=== PATIENT | male | born 1955 | race Caucasian/White ===

== ENCOUNTER 2017-07-29 17:14 | Inpatient (IN) | payer BC ==
[2017-07-29] MEDS ORDERED: Piperacillin/Tazobactam 4.5 GM VIAL ONE (21:39)
[2017-07-29] MEDS ORDERED: Sodium Chloride 0.9% 100 ML ONE (21:39)
[2017-07-29 21:41] LABS: #Eosinphils 0.1 thou/uL (0.0-0.7); #Lymphocytes 2.3 thou/uL (1.20-3.40); #Monocytes 1.6 thou/uL (0.11-0.59); #Neutrophils 12.7 thou/uL (1.40-6.50); %Basophils 0.3 % (0.0-1.0); %Eosinophils 0.8 % (0.0-10.0); %Lymphocytes 13.7 % (21.0-51.0); %Monocytes 9.6 % (0.0-10.0); Hematocrit 48.8 % (42.0-52.0); Mean Platelet Volume 7.1 fL (7.4-10.4); Red Blood Cell (RBC) Count 5.36 mill/uL (4.70-6.10); White Blood Cell (WBC) Count 16.8 thou/uL (4.8-10.8)
[2017-07-29 22:00] LABS: Lactic Acid - Sepsis 1.8 mmol/L (0.5-2.2)
--- NOTE | 2017-07-29 22:10 | RAD ---
RIGHT FOREARM TWO VIEWS: 07/29/17 HISTORY: Cellulitis, swelling of the right forearm and elbow. FINDINGS/IMPRESSION: No fracture, dislocation or bony destruction is seen. No periosteal reaction is identified. No radio paque foreign body is noted. POS: [facility]
[2017-07-29 22:13] LABS: ALT (SGPT) 16 U/L (8-55); AST (SGOT) 14 U/L (5-34); Alkaline Phosphatase 114 U/L (40-150); Anion Gap 14 mmol/L (10-20); BUN (Urea Nitrogen) 10 mg/dL (8.4-25.7); Calc. Creatinine Clearance 0 mL/min (70-130); Calcium 9.1 mg/dL (7.8-10.44); Carbon Dioxide 26 mmol/L (23-31); Chloride 102 mmol/L (98-107); Estimated GFR-MDRD Greater than 90; Globulin 4.8 g/dL (2.4-3.5); Protein, Total 8.5 g/dL (5.8-8.1)
[2017-07-29] MEDS ORDERED: Clindamycin/D5W 900 mg/50 ml Premix Bag ONE (22:13)
--- NOTE | 2017-07-29 22:13 | RAD ---
RIGHT ELBOW TWO VIEWS: 07/29/17 HISTORY: Cut to the right elbow last week, now with swelling, redness, warmth and pain. FINDINGS/IMPRESSION: A small olecranon space present. No fracture, dislocation, bony destruction or periosteal reaction i s identified. No radiopaque foreign body is seen. POS: [facility]
--- NOTE | 2017-07-29 23:59 | PDOC.EVN ---
Event Note - Event Note Event Note: [id number] h&p dictated 1. Rt upper extremity cellulitis 2. Pain 3. Sepsis 4. H/O Ventral hernia plan: see orders
[2017-07-30] MEDS ORDERED: HYDROcodone/Acetaminophen 5/325 mg Tablet PO PRN (00:41)
[2017-07-30] MEDS ORDERED: Ondansetron HCl/PF 4 MG/2 ML Vial IVP PRN ×2 (00:41→11:16)
[2017-07-30] MEDS ORDERED: Morphine 2 MG/ML SYRINGE SLOW IVP PRN (00:44)
[2017-07-30 01:36] VITALS: BMI 37.2
[2017-07-30] MEDS: Sodium Chloride 0.9% 1,000 ML IV SCH ×3 (02:14→20:44)
[2017-07-30] MEDS ORDERED: Clindamycin/D5W 600 MG in Premix Bag 1 BAG IVPB SCH (06:00)
--- NOTE | 2017-07-30 07:19 | ULT ---
PRELIMINARY REPORT/[facility]/EMERGENCY AFTER HOURS PROCEDURE: EXAM: US Duplex Right Upper Extremity Veins CLINICAL HISTORY: 62 years old, male; Pain and signs and symptoms; Edema, localized and other: Redness; Upper extremit y, right; Other: Elbow TECHNIQUE: Real-time ultrasound scan of the veins of the right upper extremity with color Doppler flow, spectra l waveform analysis and compression. COMPARISON: No relevant prior studies available. FINDINGS: Evaluated veins include the internal jugular, subclavian, axillary, brachial, basilic, cephalic, rad ial, and ulnar veins. No visible clot in the included veins. The included veins appear normally compressible. Duplex Doppler evaluation demonstrates flow in the evaluated veins. IMPRESSION: No evidence of acute right upper extremity DVT. Thank you for allowing us to participate in the care of your patient. Dictated and Authenticated by: Mack Escalante MD 07/30/2017 12:25 AM Central Time ([place] \T\ [place]) FINAL REPORT EMERGENT AFTER HOURS RIGHT UPPER EXTREMITY VENOUS DOPPLER WITH SPECTRAL ANALYSIS AND COLOR FLOW EVAL UATION: 07/30/2017 HISTORY: Right upper extremity pain. IMPRESSION: Findings are in agreement with the preliminary report by Marquise. There is no evidence of a DVT invol ving the visualized deep venous structures of the right upper extremity. POS: [facility]
[2017-07-30] MEDS ORDERED: Milk Of Magnesia 30 ML UDCUP PO PRN (07:46)
[2017-07-30] MEDS ORDERED: Ondansetron ODT 4 MG TAB PO PRN (07:46)
[2017-07-30] MEDS ORDERED: Artificial Tears 18 DROP/0.9 ML EA EYE PRN (07:46)
[2017-07-30] MEDS ORDERED: Loperamide HCl 2 MG CAP PO PRN (07:46)
[2017-07-30] MEDS ORDERED: Mag-Al 1200 mg/1200 mg/30 ML UDCUP PO PRN (07:46)
[2017-07-30] MEDS ORDERED: Temazepam 15 MG CAP PO PRN (07:46)
[2017-07-30] MEDS ORDERED: Chloraseptic Spray 180 ml Bottle PO PRN (07:46)
[2017-07-30] MEDS ORDERED: Sodium Chloride 0.65% Nasal 44 ML BOT EA NARE PRN (07:46)
[2017-07-30] MEDS ORDERED: Loratadine 10 MG TAB PO PRN (07:46)
[2017-07-30] MEDS ORDERED: Senokot 8.6 MG TAB PO PRN (07:46)
[2017-07-30] MEDS ORDERED: hydrALAZINE 20 MG/ML VIAL SLOW IVP PRN (07:46)
[2017-07-30] MEDS ORDERED: Diabetic Tussin 200 MG/10 ML UDCUP PO PRN (07:46)
[2017-07-30] MEDS ORDERED: Eucerin (Mineral Oil/Petrolatum,White) 30 gm Jar TOP PRN (07:46)
--- NOTE | 2017-07-30 07:52 | CON ---
DATE OF CONSULTATION: 07/30/2017 REQUESTING PHYSICIAN: Dr. Yaya Chen CONSULTING PHYSICIAN: Dr. Emmanuel Calvert CHIEF COMPLAINT: Right arm septic olecranon bursitis. HISTORY OF PRESENT ILLNESS: Jerome is a 62-year-old white male who was admitted to the emergency [facility] yesterday evening after he presented as a walk-in for amplified pain, swelling, and redness of the right elbow after he bumped it approximately 5 days ago. He treated with essentially benign neglec t for the prior 4-5 days until pain amplification prompted him to come to the ER. He was admitted b y the Medicine Team and our service was consulted for evaluation of presumed septic olecranon bursit is with resultant leukocytosis. PAST MEDICAL HISTORY: Negative with the exception of chronic morbid obesity. PAST SURGICAL HISTORY: Noncontributory. PHYSICAL EXAMINATION: VITAL SIGNS: Temperature 98.3, pulse 76, respiration rate 18, O2 saturation 98% on room air, blood pressure 129/74. GENERAL: He is alert and oriented to person, place, time, and situation, responds appropriately to examiner. Grossly nonfocal. EXTREMITIES: Visual inspection of the right upper extremity demonstrates him to have cellulitis on the posterior aspect of the brachium extending over the elbow posteriorly and down the forearm with circumferential swelling appreciated consistent with inflammatory edema and cellulitis. Range of mo tion of the elbows is uninhibited non-provocative for pain with the exception of olecranon discomfor t. Fluctuance is appreciated with palpation and pressure on the blistered olecranon itself and it a ppears to be grossly infected. Skin blistering is also noted and a little bit of weepage is appreci ated. IMPRESSION: 1. Septic olecranon bursitis, right elbow. 2. Cellulitis secondary to #1. 3. Leukocytosis secondary to #1 and 2. PLAN: 1. N.p.o. 2. The risks, benefits, options, alternatives, and rationale for proceeding with incision and drain age, washout, exploration of the right elbow olecranon has been explained in great detail with the p atient. He is ready to proceed. All questions were answered. No guarantee of outcome has been sta kenny or implied. 3. Please see orders.
[2017-07-30] MEDS: Heparin 5,000 UNITS/ML VIAL SC SCH ×2 (07:53→15:53)
[2017-07-30] MEDS ORDERED: Piperacillin/Tazobactam 3.375 GM in Sodium Chloride 0.9% 100 ML IVPB SCH (08:00)
[2017-07-30] MEDS: Piperacillin/Tazobactam 3.375 GM, Admixture Fee 1 EACH in Sodium Chloride 0.9% 100 ML IVPB SCH ×3 (08:25→20:44)
[2017-07-30] MEDS: Famotidine 20 MG TAB PO SCH ×2 (09:00→20:47)
[2017-07-30] MEDS ORDERED: Midazolam HCl 2 mg/2 ml Vial ONE (09:42)
[2017-07-30] MEDS ORDERED: Fentanyl 100 MCG/2 ML VIAL ONE ×2 (09:42)
--- NOTE | 2017-07-30 10:07 | HP ---
DATE OF ADMISSION: 07/29/2017 CHIEF COMPLAINT: Right upper extremity pain. HISTORY OF PRESENT ILLNESS: Patient is a 62 years old male with past medical history of hernia, now came to the hospital because of right upper extremity swelling. Patient said, approximately 1 week back, he had elbow injury, had a small cut, he cleaned the wound, after that he started noticing right arm swelling and erythema associated with some blister and drainage also, swelling persisted. The patient also complains of pain, pain is mild in intensity. Complains of fever and chills. Denies any cough, denies production, denies any chest pain, denies any trouble breathing, denies any dizziness. PAST MEDICAL HISTORY: Hernia. PAST SURGICAL HISTORY: None. SOCIAL HISTORY: Denies smoking, denies alcohol, denies any drugs. FAMILY HISTORY: Denies any heart problems. REVIEW OF SYSTEMS: Constitutional: Denies any fever, denies any chills. Eyes : Vision problems. Ears: Denies hearing loss. Neck: Denies any neck pain. Cardiovascular System: Denies any chest pain, denies any palpations. Respiratory System: Denies any cough, denies production. Gastrointestinal: Denies nausea or vomiting. Integumentary: Denies any rash. Musculoskeletal: Positive for right elbow swelling. Positive for right upper extremity swelling and erythema. Integumentary: Positive for right upper extremity swelling, erythema, and blisters. Psychiatric: Mood appropriate this time. Psychiatric : Denies any depression or anxiety. All other review of systems is reviewed and is negative. PHYSICAL EXAMINATION: CONSTITUTIONAL/VITAL SIGNS: At the time of H and P performed, blood pressure is stable, afebrile, pulse oximetry 97%. GENERAL: This patient appears comfortable. HEENT: Pupils equal, round, and reactive to light. Anterior nares patent. Nose normal. Ears normal. Teeth intact. Tongue is moist. NECK: Supple. No JVD. CARDIOVASCULAR SYSTEM: S1, S2 present. Regular rate and rhythm. No murmurs, no rubs, no gallops. RESPIRATORY SYSTEM: No wheezing and no rhonchi. MUSCULOSKELETAL: Right upper extremity swelling present, erythema present, drainage present. Right elbow erythema present, drainage present, warm to touch. CRANIAL NERVE SYSTEM: Cranial nerves intact. Follows commands. Strength intact, sensory intact. PSYCHIATRIC: Mood appropriate at this time. LABORATORY DATA: At the time of H and P performed, white count 16.8, hemoglobin 16, platelet count is 303. BMP shows sodium 138, potassium 3.6, chloride 102, CO2 26, BUN 10, creatinine 0.82, glucose 100, AST 14, ALT 16, alkaline phosphatase 114, and albumin 3.7. ASSESSMENT AND PLAN: The patient is 62 years old male. 1. Right upper extremity cellulitis. Plan to start patient on IV antibiotics. Plan to consult Orthopedics to evaluate the elbow also, to rule out septic joint. We will keep the patient n.p.o. We will start patient on broad- spectrum antibiotics and we will follow the patient. 2. Pain. P.r.n. pain medications. 3. History of ventral hernia. Advised the patient to follow up with surgeon as an outpatient for surgical evaluation. 4. Sepsis secondary to cellulitis. Continue IV antibiotics. Plan to do blood cultures. Repeat CBC with differential in a.m. The case was discussed in detail with the patient. Patient is FULL CODE. MTDD
[2017-07-30] MEDS ORDERED: Ondansetron HCl/PF 4 MG/2 ML Vial ONE (10:25)
[2017-07-30] MEDS ORDERED: Metoclopramide HCl 10 MG/2 ML VIAL ONE (10:25)
[2017-07-30] MEDS ORDERED: diphenhydrAMINE 50 MG/ML VIAL ONE (10:25)
[2017-07-30] MEDS ORDERED: Lidocaine 1% PF 5 ML VIAL ONE (10:25)
[2017-07-30] MEDS ORDERED: Propofol 200 MG/20 ML VIAL ONE (10:25)
[2017-07-30] MEDS ORDERED: Ketorolac Tromethamine 30 MG/ML VIAL ONE (10:25)
[2017-07-30] MEDS ORDERED: Dexamethasone 20 MG/5 ML VIAL ONE (10:25)
[2017-07-30] MEDS ORDERED: Fentanyl 100 MCG/2 ML VIAL SLOW IVP PRN ×2 (10:31)
[2017-07-30] MEDS ORDERED: HYDROcodone/Acetaminophen 10/325 mg Tablet PO PRN (10:31)
[2017-07-30] MEDS ORDERED: Promethazine HCl 25 MG/ML VIAL IM PRN (11:16)
[2017-07-30] MEDS ORDERED: Promethazine HCl 25 MG/ML VIAL SLOW IVP PRN (11:16)
--- NOTE | 2017-07-30 11:56 | PDOC.PN ---
- Subjective Encounter Start Date: 07/30/17 Encounter Start Time: 09:45 -: old records requested/rev Patient seen and examined. No overnight events, no fever, has pain at right elbow - Objective MAR Reviewed: Yes Vital Signs & Weight: Vital Signs (12 hours) Temp Pulse Resp BP Pulse Ox 07/30/17 08:00 98.5 F 88 22 H 129/81 97 07/30/17 04:00 98.3 F 76 18 129/74 98 07/30/17 01:33 98.4 F 84 20 105/79 97 Weight Weight 290 lb Result Diagrams: 07/29/17 21:29 07/29/17 21:30 Radiology Reviewed by me: Yes Phys Exam - Physical Examination Constitutional: NAD HEENT: PERRLA, moist MMs, sclera anicteric Neck: no JVD, supple Respiratory: no wheezing, no rales, no rhonchi Cardiovascular: RRR, no significant murmur, no rub Gastrointestinal: soft, non-tender, no distention, positive bowel sounds Musculoskeletal: no edema, pulses present right UE cellulitis, bursitis Neurological: non-focal, normal sensation, moves all 4 limbs Lymphatic: no nodes Psychiatric: normal affect, A&O x 3 Skin: no rash, normal turgor Dx/Plan (1) Olecranon bursitis, right elbow Code(s): M70.21 - OLECRANON BURSITIS, RIGHT ELBOW Status: Acute (2) Cellulitis of right upper extremity Code(s): L03.113 - CELLULITIS OF RIGHT UPPER LIMB Status: Acute (3) Obesity (BMI 30-39.9) Code(s): E66.9 - OBESITY, UNSPECIFIED Status: Chronic - Plan cont current plan of care, continue antibiotics * ortho planning to to I & D * medication reviewed as below * symptomatic treatment * continue IV vancomycin and zosyn * pain control * post op wound care. Review of Systems - Review of Systems ENT: negative: Ear Pain, Ear Discharge, Nose Pain, Nose Discharge, Nose Congestion, Mouth Pain, Mouth Swelling, Throat Pain, Throat Swelling, Other Respiratory: negative: Cough, Dry, Shortness of Breath, Hemoptysis, SOB with Excertion, Pleuritic Pain, Sputum, Wheezing Cardiovascular: negative: Chest Pain, Palpitations, Orthopnea, Paroxysmal Noc. Dyspnea, Edema, Light Headedness, Other Gastrointestinal: negative: Nausea, Vomiting, Abdominal Pain, Diarrhea, Constipation, Melena, Hematochezia, Other Genitourinary: negative: Dysuria, Frequency, Incontinence, Hematuria, Retention , Other Musculoskeletal: Arm Pain. negative: Neck Pain, Shoulder Pain, Back Pain, Hand Pain, Leg Pain, Foot Pain, Other Skin: negative: Rash, Lesions, Jadiel, Bruising, Other - Medications/Allergies Allergies/Adverse Reactions: Allergies Allergy/AdvReac Type Severity Reaction Status Date / Time No Known Drug Allergies Allergy Verified 07/30/17 08:15 Medications: Current Medications Acetaminophen (Tylenol) 650 mg PO Q4H PRN PRN Reason: Headache/Fever or Pain Hydrocodone Bitart/Acetaminophen ([place] 5/325) 1 tab PO Q4H PRN PRN Reason: Moderate Pain (4-6) Hydrocodone Bitart/Acetaminophen ([place] 10/325) 1 tab PO Q4H PRN PRN Reason: Mild Pain (1-3) Hydrocodone Bitart/Acetaminophen ([place] 10/325) 2 tab PO Q4H PRN PRN Reason: Moderate Pain (4-6) Al Hydroxide/Mg Hydroxide (Maalox) 15 ml PO Q4H PRN PRN Reason: Heartburn or Indigestion Artificial Tears (Tears Naturale) 0 drop EA EYE PRN PRN PRN Reason: Dry Eyes Enoxaparin Sodium (Lovenox) 40 mg SC 0900 [facility] Enoxaparin Sodium (Lovenox) 40 mg SC 2100 [facility] Famotidine (Pepcid) 20 mg PO BID [facility] Fentanyl (Sublimaze) 50 mcg SLOW IVP Q1H PRN PRN Reason: Moderate to Severe Pain (6-10) Fentanyl (Sublimaze) 100 mcg SLOW IVP Q1H PRN PRN Reason: Moderate to Severe Pain (6-10) Fentanyl (Pacu-Sublimaze) 50 mcg SLOW IVP Q10MIN PRN PRN Reason: Moderate to Severe Pain (6-10) Stop: 07/30/17 14:16 Guaifenesin (Robitussin Sf) 200 mg PO Q4H PRN PRN Reason: Cough Heparin Sodium (Porcine) (Heparin) 5,000 units SC TID [facility] Last Admin: 07/30/17 07:53 Dose: Not Given Hydralazine HCl (Apresoline) 10 mg SLOW IVP Q4H PRN PRN Reason: Systolic BP > 180 Sodium Chloride (Normal Saline 0.9%) 1,000 mls @ 100 mls/hr IV .Q10H [facility] Last Admin: 07/30/17 02:14 Dose: 1,000 mls Vancomycin HCl 1.5 gm/ Sodium (Chloride) 300 mls @ 200 mls/hr IVPB 1200,2359 [facility] Piperacillin Sod/Tazobactam Sod 3.375 gm/ Miscellaneous Medication 1 each/ Sodium Chloride 100 mls @ 200 mls/hr IVPB 0200,0800,1400,2000 [facility] Last Admin: 07/30/17 08:25 Dose: 100 mls Influenza Virus Vaccine (Fluzone Quad [id number] Syringe) 0.5 ml IM .ONCE ONE Stop: 07/31/17 09:01 Loperamide HCl (Imodium) 2 mg PO PRN PRN PRN Reason: Diarrhea/Loose Stools Loratadine (Claritin) 10 mg PO DAILYPRN PRN PRN Reason: Sinus Symptoms Magnesium Hydroxide (Milk Of Magnesium) 30 ml PO DAILYPRN PRN PRN Reason: Constipation Mineral Oil/White Petrolatum (Eucerin Cream) 0 gm TOP BIDPRN PRN PRN Reason: Dry Skin Morphine Sulfate (Morphine Sulfate) 2 mg SLOW IVP Q4H PRN PRN Reason: Moderate Pain (4-6) Ondansetron HCl (Zofran) 4 mg IVP Q6H PRN PRN Reason: Nausea/Vomiting Ondansetron HCl (Zofran Odt) 4 mg PO Q6H PRN PRN Reason: Nausea/Vomiting Ondansetron HCl (Pacu-Zofran) 4 mg IVP ONE PRN PRN Reason: Nausea/Vomiting Stop: 07/30/17 14:16 Phenol (Chloraseptic [place] 180 Ml Bot) 0 ml PO PRN PRN PRN Reason: Sore Throat Promethazine HCl (Pacu-Phenergan) 6.25 mg SLOW IVP ONE PRN PRN Reason: Nausea/Vomiting Stop: 07/30/17 14:16 Promethazine HCl (Pacu-Phenergan) 6.25 mg IM ONE PRN PRN Reason: Nausea/Vomiting Stop: 07/30/17 14:16 Senna (Senokot) 2 tab PO HSPRN PRN PRN Reason: Constipation Sodium Chloride (Flush - Normal Saline) 10 ml IVF Q12HR [facility] Last Admin: 07/30/17 10:04 Dose: 10 ml Sodium Chloride (Flush - Normal Saline) 10 ml IVF PRN PRN PRN Reason: Saline Flush Sodium Chloride ([place] Nasal [place] 0.65%) 0 ml EA NARE QIDPRN PRN PRN Reason: Nasal Congestion Temazepam (Restoril) 15 mg PO HSPRN PRN PRN Reason: Insomnia
--- NOTE | 2017-07-30 12:09 | OP ---
PREOPERATIVE DIAGNOSIS: Abscess in the right arm. POSTOPERATIVE DIAGNOSIS: Abscess in the right arm and abscess in the right olecranon bursa. PROCEDURES: Incision and drainage of right arm and right olecranon bursa. SURGEON: Emmanuel Calvert M.D. ANESTHESIA: General. BLOOD LOSS: About 50. SPECIMEN: Culture. COMPLICATIONS: None. THERAPEUTIC MENTOR: None. DESCRIPTION OF THE PROCEDURE: The patient was taken to the operating room where general anesthesia was induced. Right arm was prepped and draped in the usual sterile fashion. Arm was elevated for e xsanguination. I made an incision over the posterior arm and extended to the olecranon bursa. I de brided the bursa, removed about 10 mL of dense pus, performed a bursectomy of the bursa. I opened u p the forearm subcutaneous fascia proximally. Irrigation was performed. Tourniquet was released, h emostasis was obtained. The wound was packed and open with a single piece of Kerlix and sterile vinicio ssings applied. Postoperative plan is for wound VAC. Cultures were obtained, so we will be able to adjust antibiotics based on that and then vancomycin and Zosyn.
[2017-07-30] MEDS: Vancomycin HCl 1.5 GM in Sodium Chloride 0.9% 250 ML 300 ML IVPB SCH (14:07)
[2017-07-30] MEDS: Enoxaparin Sodium 40 MG/0.4 ML SYRINGE SC SCH (20:46)
[2017-07-31] MEDS: Vancomycin HCl 1.5 GM in Sodium Chloride 0.9% 250 ML 300 ML IVPB SCH ×2 (00:15→12:06)
[2017-07-31] MEDS: Piperacillin/Tazobactam 3.375 GM, Admixture Fee 1 EACH in Sodium Chloride 0.9% 100 ML IVPB SCH ×4 (02:43→19:34)
[2017-07-31 05:06] LABS: #Eosinphils 0.1 thou/uL (0.0-0.7); #Lymphocytes 1.4 thou/uL (1.20-3.40); #Monocytes 1.1 thou/uL (0.11-0.59); #Neutrophils 13.3 thou/uL (1.40-6.50); %Basophils 0.1 % (0.0-1.0); %Eosinophils 0.4 % (0.0-10.0); %Lymphocytes 8.5 % (21.0-51.0); %Monocytes 6.7 % (0.0-10.0); Mean Platelet Volume 7.4 fL (7.4-10.4); Red Blood Cell (RBC) Count 4.95 mill/uL (4.70-6.10); White Blood Cell (WBC) Count 15.8 thou/uL (4.8-10.8)
[2017-07-31 05:26] LABS: Anion Gap 13 mmol/L (10-20); BUN (Urea Nitrogen) 14 mg/dL (8.4-25.7); Calc. Creatinine Clearance 167 mL/min (70-130); Calcium 8.7 mg/dL (7.8-10.44); Carbon Dioxide 21 mmol/L (23-31); Chloride 108 mmol/L (98-107); Estimated GFR-MDRD Greater than 90
[2017-07-31] MEDS: Sodium Chloride 0.9% 1,000 ML IV SCH ×2 (05:57→16:54)
[2017-07-31] MEDS: Famotidine 20 MG TAB PO SCH ×2 (07:58→20:05)
[2017-07-31] MEDS: Enoxaparin Sodium 40 MG/0.4 ML SYRINGE SC SCH ×2 (07:59→20:05)
[2017-07-31] MEDS: HYDROcodone/Acetaminophen 10/325 mg Tablet PO PRN (08:44)
[2017-07-31] MEDS ORDERED: FLU VACC QS2017-18 36 mo. & older 0.5 ML SYRINGE IM ONE (09:00)
--- NOTE | 2017-07-31 11:40 | PDOC.PN ---
- Subjective Encounter Start Date: 07/31/17 Encounter Start Time: 09:50 Patient seen and examined. No new complaints. No overnight events - Objective MAR Reviewed: Yes Vital Signs & Weight: Vital Signs (12 hours) Temp Pulse Resp BP Pulse Ox 07/31/17 08:00 98.2 F 91 16 07/31/17 07:26 98.2 F 91 16 138/82 91 L 07/31/17 04:00 98.0 F 88 16 143/80 H 96 07/31/17 00:00 98.1 F 82 14 137/77 94 L Weight Admit Weight 290 lb Weight 290 lb I&O: 07/30/17 07/31/17 08/01/17 06:59 06:59 06:59 Intake Total 3980 480 Balance 3980 480 Result Diagrams: 07/31/17 04:48 07/31/17 04:48 Phys Exam - Physical Examination Constitutional: NAD HEENT: PERRLA, moist MMs, sclera anicteric Neck: no JVD, supple Respiratory: no wheezing, no rales, no rhonchi Cardiovascular: RRR, no significant murmur, no rub Gastrointestinal: soft, non-tender, no distention, positive bowel sounds Musculoskeletal: no edema, pulses present right elbow with dressing and wound vac Neurological: non-focal, normal sensation, moves all 4 limbs Psychiatric: normal affect, A&O x 3 Skin: no rash, normal turgor Dx/Plan (1) Olecranon bursitis, right elbow Code(s): M70.21 - OLECRANON BURSITIS, RIGHT ELBOW Status: Acute (2) Cellulitis of right upper extremity Code(s): L03.113 - CELLULITIS OF RIGHT UPPER LIMB Status: Acute (3) Obesity (BMI 30-39.9) Code(s): E66.9 - OBESITY, UNSPECIFIED Status: Chronic - Plan cont current plan of care, continue antibiotics * continue wound care with wound vac. * follow culture * continue vancomycin and zosyn * medication reviewed as below * symptomatic treatment * pain controlled Review of Systems - Review of Systems ENT: negative: Ear Pain, Ear Discharge, Nose Pain, Nose Discharge, Nose Congestion, Mouth Pain, Mouth Swelling, Throat Pain, Throat Swelling, Other Respiratory: negative: Cough, Dry, Shortness of Breath, Hemoptysis, SOB with Excertion, Pleuritic Pain, Sputum, Wheezing Cardiovascular: negative: Chest Pain, Palpitations, Orthopnea, Paroxysmal Noc. Dyspnea, Edema, Light Headedness, Other Gastrointestinal: negative: Nausea, Vomiting, Abdominal Pain, Diarrhea, Constipation, Melena, Hematochezia, Other Genitourinary: negative: Dysuria, Frequency, Incontinence, Hematuria, Retention , Other Musculoskeletal: negative: Neck Pain, Shoulder Pain, Arm Pain, Back Pain, Hand Pain, Leg Pain, Foot Pain, Other - Medications/Allergies Allergies/Adverse Reactions: Allergies Allergy/AdvReac Type Severity Reaction Status Date / Time No Known Drug Allergies Allergy Verified 07/30/17 08:15 Medications: Current Medications Acetaminophen (Tylenol) 650 mg PO Q4H PRN PRN Reason: Headache/Fever or Pain Hydrocodone Bitart/Acetaminophen ([place] 5/325) 1 tab PO Q4H PRN PRN Reason: Moderate Pain (4-6) Hydrocodone Bitart/Acetaminophen ([place] 10/325) 1 tab PO Q4H PRN PRN Reason: Mild Pain (1-3) Hydrocodone Bitart/Acetaminophen ([place] 10/325) 2 tab PO Q4H PRN PRN Reason: Moderate Pain (4-6) Last Admin: 07/31/17 08:44 Dose: 2 tab Al Hydroxide/Mg Hydroxide (Maalox) 15 ml PO Q4H PRN PRN Reason: Heartburn or Indigestion Artificial Tears (Tears Naturale) 0 drop EA EYE PRN PRN PRN Reason: Dry Eyes Enoxaparin Sodium (Lovenox) [address] [facility] Last Admin: 07/31/17 07:59 Dose: 40 mg Enoxaparin Sodium (Lovenox) [address] [facility] Last Admin: 07/30/17 20:46 Dose: 40 mg Famotidine (Pepcid) [address] [facility] Last Admin: 07/31/17 07:58 Dose: 20 mg Fentanyl (Sublimaze) 50 mcg SLOW IVP Q1H PRN PRN Reason: Moderate to Severe Pain (6-10) Fentanyl (Sublimaze) 100 mcg SLOW IVP Q1H PRN PRN Reason: Moderate to Severe Pain (6-10) Guaifenesin (Robitussin Sf) 200 mg PO Q4H PRN PRN Reason: Cough Hydralazine HCl (Apresoline) 10 mg SLOW IVP Q4H PRN PRN Reason: Systolic BP > 180 Sodium Chloride (Normal Saline 0.9%) 1,000 mls @ 100 mls/hr IV .Q10H [facility] Last Admin: 07/31/17 05:57 Dose: 1,000 mls Vancomycin HCl 1.5 gm/ Sodium (Chloride) 300 mls @ 200 mls/hr IVPB 1200,2359 [facility] Last Admin: 07/31/17 00:15 Dose: 300 mls Piperacillin Sod/Tazobactam Sod 3.375 gm/ Miscellaneous Medication 1 each/ Sodium Chloride 100 mls @ 200 mls/hr IVPB 0200,0800,1400,2000 [facility] Last Admin: 07/31/17 07:53 Dose: 100 mls Loperamide HCl (Imodium) 2 mg PO PRN PRN PRN Reason: Diarrhea/Loose Stools Loratadine (Claritin) 10 mg PO DAILYPRN PRN PRN Reason: Sinus Symptoms Magnesium Hydroxide (Milk Of Magnesium) 30 ml PO DAILYPRN PRN PRN Reason: Constipation Mineral Oil/White Petrolatum (Eucerin Cream) 0 gm TOP BIDPRN PRN PRN Reason: Dry Skin Morphine Sulfate (Morphine Sulfate) 2 mg SLOW IVP Q4H PRN PRN Reason: Moderate Pain (4-6) Ondansetron HCl (Zofran) 4 mg IVP Q6H PRN PRN Reason: Nausea/Vomiting Ondansetron HCl (Zofran Odt) 4 mg PO Q6H PRN PRN Reason: Nausea/Vomiting Phenol (Chloraseptic [place] 180 Ml Bot) 0 ml PO PRN PRN PRN Reason: Sore Throat Senna (Senokot) 2 tab PO HSPRN PRN PRN Reason: Constipation Sodium Chloride (Flush - Normal Saline) [address] [facility] Last Admin: 07/31/17 07:59 Dose: 10 ml Sodium Chloride (Flush - Normal Saline) 10 ml IVF PRN PRN PRN Reason: Saline Flush Sodium Chloride ([place] Nasal [place] 0.65%) 0 ml EA NARE QIDPRN PRN PRN Reason: Nasal Congestion Temazepam (Restoril) 15 mg PO HSPRN PRN PRN Reason: Insomnia
[2017-07-31 11:50] LABS: Vancomycin, Trough Less than 1.1 ug/mL
[2017-07-31] MEDS ORDERED: Vancomycin HCl 1.5 GM in Sodium Chloride 0.9% 250 ML 300 ML IVPB SCH (20:30)
[2017-08-01] MEDS: Piperacillin/Tazobactam 3.375 GM, Admixture Fee 1 EACH in Sodium Chloride 0.9% 100 ML IVPB SCH (02:10)
[2017-08-01] MEDS: Vancomycin HCl 1.5 GM in Sodium Chloride 0.9% 250 ML 300 ML IVPB SCH ×2 (04:17→11:32)
[2017-08-01] MEDS: Sodium Chloride 0.9% 1,000 ML IV SCH ×3 (04:26→22:49)
[2017-08-01] MEDS: Acetaminophen 325 MG TAB PO PRN (08:43)
[2017-08-01] MEDS: Enoxaparin Sodium 40 MG/0.4 ML SYRINGE SC SCH ×2 (08:44→20:00)
[2017-08-01] MEDS: Famotidine 20 MG TAB PO SCH ×2 (08:44→20:00)
[2017-08-01] MEDS ORDERED: Ketorolac Tromethamine 30 MG/ML VIAL IVP PRN (11:55)
--- NOTE | 2017-08-01 11:55 | PDOC.PN ---
- Subjective Encounter Start Date: 08/01/17 Encounter Start Time: 08:00 pt did not tolerate morphin well, made not to feel good, no fever - Objective MAR Reviewed: Yes Vital Signs & Weight: Vital Signs (12 hours) Temp Pulse Resp BP Pulse Ox 08/01/17 11:45 97.8 F 87 18 169/90 H 97 08/01/17 08:08 98.5 F 85 20 169/92 H 96 08/01/17 08:00 98.5 F 85 20 08/01/17 02:30 85 22 H 151/92 H Weight Admit Weight 290 lb Weight 290 lb I&O: 07/31/17 08/01/17 08/02/17 06:59 06:59 06:59 Intake Total 3980 3050 240 Output Total 200 Balance 3980 2850 240 Result Diagrams: 07/31/17 04:48 07/31/17 04:48 Phys Exam - Physical Examination Constitutional: NAD HEENT: PERRLA, moist MMs, sclera anicteric Neck: no JVD, supple Respiratory: no wheezing, no rales, no rhonchi Cardiovascular: RRR, no significant murmur, no rub Gastrointestinal: soft, non-tender, no distention, positive bowel sounds Musculoskeletal: no edema, pulses present right UE with dressing and wound vac in place Neurological: non-focal, normal sensation, moves all 4 limbs Lymphatic: no nodes Psychiatric: normal affect, A&O x 3 Skin: no rash, normal turgor Dx/Plan (1) Olecranon bursitis, right elbow Code(s): M70.21 - OLECRANON BURSITIS, RIGHT ELBOW Status: Acute (2) Cellulitis of right upper extremity Code(s): L03.113 - CELLULITIS OF RIGHT UPPER LIMB Status: Acute (3) Obesity (BMI 30-39.9) Code(s): E66.9 - OBESITY, UNSPECIFIED Status: Chronic - Plan cont current plan of care, continue antibiotics * as culture is positive for MRSA, will dc Zosyn * continue vancomycin * wound care with wound vac * ortho to decide about need for wound vac. * pain control * will add toradol Review of Systems - Review of Systems ENT: negative: Ear Pain, Ear Discharge, Nose Pain, Nose Discharge, Nose Congestion, Mouth Pain, Mouth Swelling, Throat Pain, Throat Swelling, Other Respiratory: negative: Cough, Dry, Shortness of Breath, Hemoptysis, SOB with Excertion, Pleuritic Pain, Sputum, Wheezing Cardiovascular: negative: Chest Pain, Palpitations, Orthopnea, Paroxysmal Noc. Dyspnea, Edema, Light Headedness, Other Gastrointestinal: negative: Nausea, Vomiting, Abdominal Pain, Diarrhea, Constipation, Melena, Hematochezia, Other Genitourinary: negative: Dysuria, Frequency, Incontinence, Hematuria, Retention , Other Musculoskeletal: negative: Neck Pain, Shoulder Pain, Arm Pain, Back Pain, Hand Pain, Leg Pain, Foot Pain, Other - Medications/Allergies Allergies/Adverse Reactions: Allergies Allergy/AdvReac Type Severity Reaction Status Date / Time No Known Drug Allergies Allergy Verified 07/30/17 08:15 Medications: Current Medications Acetaminophen (Tylenol) 650 mg PO Q4H PRN PRN Reason: Headache/Fever or Pain Last Admin: 08/01/17 08:43 Dose: 650 mg Hydrocodone Bitart/Acetaminophen ([place] 5/325) 1 tab PO Q4H PRN PRN Reason: Moderate Pain (4-6) Hydrocodone Bitart/Acetaminophen ([place] 10/325) 1 tab PO Q4H PRN PRN Reason: Mild Pain (1-3) Hydrocodone Bitart/Acetaminophen ([place] 10/325) 2 tab PO Q4H PRN PRN Reason: Moderate Pain (4-6) Last Admin: 07/31/17 08:44 Dose: 2 tab Al Hydroxide/Mg Hydroxide (Maalox) 15 ml PO Q4H PRN PRN Reason: Heartburn or Indigestion Artificial Tears (Tears Naturale) 0 drop EA EYE PRN PRN PRN Reason: Dry Eyes Enoxaparin Sodium (Lovenox) 40 mg SC 0900 [facility] Last Admin: 08/01/17 08:44 Dose: 40 mg Enoxaparin Sodium (Lovenox) 40 mg SC 2100 [facility] Last Admin: 07/31/17 20:05 Dose: 40 mg Famotidine (Pepcid) 20 mg PO BID [facility] Last Admin: 08/01/17 08:44 Dose: 20 mg Fentanyl (Sublimaze) 50 mcg SLOW IVP Q1H PRN PRN Reason: Moderate to Severe Pain (6-10) Fentanyl (Sublimaze) 100 mcg SLOW IVP Q1H PRN PRN Reason: Moderate to Severe Pain (6-10) Guaifenesin (Robitussin Sf) 200 mg PO Q4H PRN PRN Reason: Cough Hydralazine HCl (Apresoline) 10 mg SLOW IVP Q4H PRN PRN Reason: Systolic BP > 180 Sodium Chloride (Normal Saline 0.9%) 1,000 mls @ 100 mls/hr IV .Q10H [facility] Last Admin: 08/01/17 04:26 Dose: 1,000 mls Vancomycin HCl 1.5 gm/ Sodium (Chloride) 300 mls @ 200 mls/hr IVPB 0400,1200, 2000 [facility] Last Admin: 08/01/17 11:32 Dose: 300 mls Loperamide HCl (Imodium) 2 mg PO PRN PRN PRN Reason: Diarrhea/Loose Stools Loratadine (Claritin) 10 mg PO DAILYPRN PRN PRN Reason: Sinus Symptoms Magnesium Hydroxide (Milk Of Magnesium) 30 ml PO DAILYPRN PRN PRN Reason: Constipation Mineral Oil/White Petrolatum (Eucerin Cream) 0 gm TOP BIDPRN PRN PRN Reason: Dry Skin Morphine Sulfate (Morphine Sulfate) 2 mg SLOW IVP Q4H PRN PRN Reason: Moderate Pain (4-6) Last Admin: 08/01/17 02:14 Dose: 2 mg Ondansetron HCl (Zofran) 4 mg IVP Q6H PRN PRN Reason: Nausea/Vomiting Ondansetron HCl (Zofran Odt) 4 mg PO Q6H PRN PRN Reason: Nausea/Vomiting Phenol (Chloraseptic Theodore 180 Ml Bot) 0 ml PO PRN PRN PRN Reason: Sore Throat Senna (Senokot) 2 tab PO HSPRN PRN PRN Reason: Constipation Sodium Chloride (Flush - Normal Saline) 10 ml IVF Q12HR [facility] Last Admin: 08/01/17 08:44 Dose: 10 ml Sodium Chloride (Flush - Normal Saline) 10 ml IVF PRN PRN PRN Reason: Saline Flush Sodium Chloride ([place] Nasal [place] 0.65%) 0 ml EA NARE QIDPRN PRN PRN Reason: Nasal Congestion Temazepam (Restoril) 15 mg PO HSPRN PRN PRN Reason: Insomnia
[2017-08-01 19:36] LABS: Vancomycin, Trough 22.7 ug/mL
[2017-08-01] MEDS: Vancomycin HCl 1.75 GM in Sodium Chloride 0.9% 500 ML IVPB SCH (23:09)
[2017-08-02 05:22] LABS: #Basophils 0.1 thou/uL (0.0-0.2); #Eosinphils 0.4 thou/uL (0.0-0.7); #Lymphocytes 1.9 thou/uL (1.20-3.40); #Monocytes 1.1 thou/uL (0.11-0.59); #Neutrophils 6.4 thou/uL (1.40-6.50); %Basophils 0.7 % (0.0-1.0); %Eosinophils 4.5 % (0.0-10.0); %Lymphocytes 19.2 % (21.0-51.0); %Monocytes 11.5 % (0.0-10.0); Hematocrit 46.2 % (42.0-52.0); Mean Platelet Volume 6.9 fL (7.4-10.4); Red Blood Cell (RBC) Count 5.02 mill/uL (4.70-6.10); White Blood Cell (WBC) Count 9.9 thou/uL (4.8-10.8)
[2017-08-02 05:38] LABS: Anion Gap 10 mmol/L (10-20); BUN (Urea Nitrogen) 14 mg/dL (8.4-25.7); Calc. Creatinine Clearance 185 mL/min (70-130); Calcium 8.9 mg/dL (7.8-10.44); Carbon Dioxide 25 mmol/L (23-31); Chloride 108 mmol/L (98-107); Estimated GFR-MDRD Greater than 90
[2017-08-02] MEDS: Acetaminophen 325 MG TAB PO PRN (05:52)
[2017-08-02] MEDS: Sodium Chloride 0.9% 1,000 ML IV SCH ×2 (08:57→12:00)
[2017-08-02] MEDS: Famotidine 20 MG TAB PO SCH ×2 (09:00→20:32)
[2017-08-02] MEDS: Enoxaparin Sodium 40 MG/0.4 ML SYRINGE SC SCH (09:01)
--- NOTE | 2017-08-02 10:32 | PDOC.PN ---
- Subjective Encounter Start Date: 08/02/17 Encounter Start Time: 10:32 Subjective: feels well.does c/o urinary hesitancy and frequency - Objective MAR Reviewed: Yes Vital Signs & Weight: Vital Signs (12 hours) Temp Pulse Resp BP Pulse Ox 08/02/17 08:00 98 F 78 18 160/92 H 95 08/02/17 07:30 98 F 78 18 Weight Admit Weight 290 lb Weight 290 lb I&O: 08/01/17 08/02/17 08/03/17 06:59 06:59 06:59 Intake Total 3050 4585 Output Total 200 Balance 2850 4585 Result Diagrams: 08/02/17 05:09 08/02/17 05:09 Additional Labs: Microbiology 07/30/17 10:40 Elbow - Wound Bacterial Culture - Final 07/30/17 10:40 Elbow - Wound Anaerobic Culture - Final Methicillin resistant S.aureus 07/29/17 21:43 Venous blood - Left Arm Blood Culture - Preliminary NO GROWTH AT 48 HOURS 07/29/17 21:30 Venous blood - Left Hand Blood Culture - Preliminary NO GROWTH AT 48 HOURS Laboratory Tests 07/29/17 07/31/17 07/31/17 21:29 04:48 04:48 WBC 16.8 H 15.8 H C-Reactive Protein 15.23 H 08/02/17 08/02/17 05:09 05:09 WBC 9.9 C-Reactive Protein 2.89 H Phys Exam - Physical Examination Constitutional: NAD HEENT: PERRLA, moist MMs, sclera anicteric, oral pharynx no lesions Neck: no nodes, no JVD, supple, full ROM Respiratory: no wheezing, no rales, no rhonchi, clear to auscultation bilateral Cardiovascular: RRR, no significant murmur, no rub, gallop Gastrointestinal: soft, non-tender, no distention, positive bowel sounds Musculoskeletal: no edema, pulses present Left elbow wound vac Neurological: non-focal, normal sensation, moves all 4 limbs Psychiatric: normal affect, A&O x 3 Skin: no rash Dx/Plan (1) Cellulitis of right upper extremity Code(s): L03.113 - CELLULITIS OF RIGHT UPPER LIMB Status: Acute (2) Olecranon bursitis, right elbow Code(s): M70.21 - OLECRANON BURSITIS, RIGHT ELBOW Status: Acute (3) Obesity (BMI 30-39.9) Code(s): E66.9 - OBESITY, UNSPECIFIED Status: Chronic - Plan continue antibiotics, out of bed/ambulate, DVT proph w/SCDs MRSA on Cx. on Vancomycin.appreciate ID consult. -: will go home on Po ABx. Orthopedics to decide about wound vac -: hemodynamically stable. -: OK to Dc once wound vac arranged. -: check UA.Post-Void residual.likley BPH.may benefit form Flomax * . Review of Systems - Review of Systems Constitutional: negative: Fever, Chills, Sweats, Weakness, Malaise, Other Eyes: negative: Pain, Vision Change, Conjunctivae Inflammation, Eyelid Inflammation, Redness, Other Cardiovascular: negative: Chest Pain, Palpitations, Orthopnea, Paroxysmal Noc. Dyspnea, Edema, Light Headedness, Other Gastrointestinal: negative: Nausea, Vomiting, Abdominal Pain, Diarrhea, Constipation, Melena, Hematochezia, Other Genitourinary: Frequency, Retention. negative: Dysuria, Incontinence, Hematuria , Other Musculoskeletal: negative: Neck Pain, Shoulder Pain, Arm Pain, Back Pain, Hand Pain, Leg Pain, Foot Pain, Other Neurological: negative: Weakness, Numbness, Incoordination, Change in Speech, Confusion, Seizures, Other - Medications/Allergies Allergies/Adverse Reactions: Allergies Allergy/AdvReac Type Severity Reaction Status Date / Time No Known Drug Allergies Allergy Verified 07/30/17 08:15 Medications: Current Medications Acetaminophen (Tylenol) 650 mg PO Q4H PRN PRN Reason: Headache/Fever or Pain Last Admin: 08/02/17 05:52 Dose: 650 mg Hydrocodone Bitart/Acetaminophen ([place] 5/325) 1 tab PO Q4H PRN PRN Reason: Moderate Pain (4-6) Hydrocodone Bitart/Acetaminophen ([place] 10/325) 1 tab PO Q4H PRN PRN Reason: Mild Pain (1-3) Hydrocodone Bitart/Acetaminophen ([place] 10/325) 2 tab PO Q4H PRN PRN Reason: Moderate Pain (4-6) Last Admin: 07/31/17 08:44 Dose: 2 tab Al Hydroxide/Mg Hydroxide (Maalox) 15 ml PO Q4H PRN PRN Reason: Heartburn or Indigestion Artificial Tears (Tears Naturale) 0 drop EA EYE PRN PRN PRN Reason: Dry Eyes Enoxaparin Sodium (Lovenox) 40 mg SC 0900 [facility] Last Admin: 08/02/17 09:01 Dose: 40 mg Famotidine (Pepcid) 20 mg PO BID [facility] Last Admin: 08/02/17 09:00 Dose: 20 mg Fentanyl (Sublimaze) 50 mcg SLOW IVP Q1H PRN PRN Reason: Moderate to Severe Pain (6-10) Fentanyl (Sublimaze) 100 mcg SLOW IVP Q1H PRN PRN Reason: Moderate to Severe Pain (6-10) Guaifenesin (Robitussin Sf) 200 mg PO Q4H PRN PRN Reason: Cough Hydralazine HCl (Apresoline) 10 mg SLOW IVP Q4H PRN PRN Reason: Systolic BP > 180 Sodium Chloride (Normal Saline 0.9%) 1,000 mls @ 100 mls/hr IV .Q10H [facility] Last Admin: 08/02/17 08:57 Dose: Not Given Vancomycin HCl 1.75 gm/ Sodium (Chloride) 500 mls @ 250 mls/hr IVPB 1200,2359 [facility] Last Admin: 08/01/17 23:09 Dose: 500 mls Ketorolac Tromethamine (Toradol) 15 mg IVP Q6H PRN PRN Reason: Pain Stop: 08/06/17 11:56 Loperamide HCl (Imodium) 2 mg PO PRN PRN PRN Reason: Diarrhea/Loose Stools Loratadine (Claritin) 10 mg PO DAILYPRN PRN PRN Reason: Sinus Symptoms Magnesium Hydroxide (Milk Of Magnesium) 30 ml PO DAILYPRN PRN PRN Reason: Constipation Mineral Oil/White Petrolatum (Eucerin Cream) 0 gm TOP BIDPRN PRN PRN Reason: Dry Skin Morphine Sulfate (Morphine Sulfate) 2 mg SLOW IVP Q4H PRN PRN Reason: Moderate Pain (4-6) Last Admin: 08/01/17 02:14 Dose: 2 mg Ondansetron HCl (Zofran) 4 mg IVP Q6H PRN PRN Reason: Nausea/Vomiting Ondansetron HCl (Zofran Odt) 4 mg PO Q6H PRN PRN Reason: Nausea/Vomiting Phenol (Chloraseptic [place] 180 Ml Bot) 0 ml PO PRN PRN PRN Reason: Sore Throat Senna (Senokot) 2 tab PO HSPRN PRN PRN Reason: Constipation Sodium Chloride (Flush - Normal Saline) 10 ml IVF Q12HR [facility] Last Admin: 08/02/17 09:01 Dose: Not Given Sodium Chloride (Flush - Normal Saline) 10 ml IVF PRN PRN PRN Reason: Saline Flush Sodium Chloride ([place] Nasal [place] 0.65%) 0 ml EA NARE QIDPRN PRN PRN Reason: Nasal Congestion Temazepam (Restoril) 15 mg PO HSPRN PRN PRN Reason: Insomnia
[2017-08-02] MEDS: HYDROcodone/Acetaminophen 10/325 mg Tablet PO PRN ×2 (11:58→20:51)
[2017-08-02] MEDS: Vancomycin HCl 1.75 GM in Sodium Chloride 0.9% 500 ML IVPB SCH (12:00)
--- NOTE | 2017-08-02 13:41 | CON ---
DATE OF CONSULTATION: 08/02/2017 REASON FOR CONSULTATION: Right elbow olecranon bursitis. HISTORY OF PRESENT ILLNESS: A 62-year-old who has no significant past medical history, sustained an injury to the right elbow with now inflammatory process, which required surgical debridement by Dr. Calvert. The procedure was carried out on 07/30/2017, basically an incision was made over the poste rior arm extended into the olecranon bursa, the bursa was debrided with 10 mL of dense purulent exud ate, then bursectomy was made. Forearm subcutaneous fascia was opened and radiation performed and t hen the wound packed, now the patient has a negative pressure dressing. He denies any headaches, vi sual symptoms, sore throat, odynophagia, dysphagia, no cough or sputum production or chest pain, no abdominal pain or diarrhea. He is having some difficulty with passing urine at this time which he n ever had before. No other joint symptoms. No neurological symptoms. PAST MEDICAL HISTORY: Hernia. PAST SURGICAL HISTORY: Negative otherwise. SOCIAL HISTORY: Never a smoker, does not drink. Works at [employer]. FAMILY HISTORY: Noncontributory. ALLERGIES: Allergy history is negative. CURRENT MEDICATIONS: Include vancomycin, p.r.n. meds. PHYSICAL EXAMINATION: VITAL SIGNS: Essentially normal except for mild elevation of systolic blood pressure. GENERAL: Appears in no distress. EXTREMITIES: Right arm is dressed. According to the piano technician the wound base was red a nd some granulation, there was some peeling of his skin around the wound. No erythema, no purulence . No lymphadenopathy. HEENT: Ocular movements are conjugate. Oral cavity with numerous teeth in place with quite a bit d esiccation and decay and gum disease. NECK: Supple, no jugular venous distention. LUNGS: With symmetric clear breath sounds. HEART: S1, S2, no S3, S4, no murmurs. ABDOMEN: Soft. Not distended or tender. No ascites. : No bladder distention. EXTREMITIES: No other joint inflammatory activity. NEUROLOGIC: Nonfocal. Cognitive function appears to be normal. LABORATORY: Sodium 139, creatinine 0.76. CRP 2.89, which is down from admission. Albumin 2.7, adilene irubin 2.0. Liver profile normal. Vancomycin trough 27.7. On biology with methicillin-resistant S taphylococcus aureus which is susceptible to clindamycin, linezolid, Bactrim, tetracycline. Elbow x-ray from 07/29/2017 with a small olecranon space, no fracture or bony destruction or periost eal reaction. ASSESSMENT: Olecranon bursitis secondary to methicillin-resistant Staphylococcus aureus, status pos t surgical debridement. DISCUSSION: The patient does not appear to have been bacteremic and continue current regimen, even tually transition to oral clindamycin at least 300 mg 4 times daily for discharge planning. Alterna te regimens would include rifampin and Bactrim or rifampin and doxycycline. Duration of therapy 2 w eeks with continuation of wound care management.
[2017-08-02 19:49] VITALS: TEMP 98
[2017-08-02] MEDS ORDERED: Tamsulosin HCl 0.4 MG CAP PO SCH (20:15)
[2017-08-03] MEDS: Vancomycin HCl 1.75 GM in Sodium Chloride 0.9% 500 ML IVPB SCH ×2 (00:03→11:33)
[2017-08-03] MEDS: Acetaminophen 325 MG TAB PO PRN (01:47)
[2017-08-03 01:59] LABS: Bilirubin Negative (Negative); Blood, Urine Large (Negative); Glucose, Urine (Dipstick) Negative (Negative); Ketone, Urine Trace mg/dL (Negative); Nitrite Negative (Negative); Protein, Urine (Dipstick) 30 mg/dL (Neg-Trace)
[2017-08-03 02:01] LABS: Bacteria/HPF None Seen HPF (None Seen); Hyaline Casts/LPF 0-3 HYALINE CAST LPF (0-3 Hyaline); RBC/HPF GREATER THAN 50-TNTC HPF (0-3); Squamous Epithelial None Seen HPF (0-3)
[2017-08-03] MEDS: Sodium Chloride 0.9% 1,000 ML IV SCH ×2 (04:04→13:55)
[2017-08-03] MEDS: HYDROcodone/Acetaminophen 10/325 mg Tablet PO PRN (04:04)
[2017-08-03 07:31] VITALS: BP 152/96
[2017-08-03] MEDS: Famotidine 20 MG TAB PO SCH (09:04)
[2017-08-03] MEDS: Enoxaparin Sodium 40 MG/0.4 ML SYRINGE SC SCH (09:04)
[2017-08-03] MEDS ORDERED: Tamsulosin HCl 0.4 MG CAP PO SCH (21:00)
--- NOTE | 2017-08-03 23:38 | DIS ---
DATE OF ADMISSION: 07/29/2017 DATE OF DISCHARGE: 08/03/2017 PRIMARY CARE PHYSICIAN: None. The patient will establish care at [facility] in [facility]. DISCHARGE FOLLOWUP: With, 1. Infectious Disease, Dr. Navarrete. 2. [facility]. CONDITION AT THE TIME OF DISCHARGE: Stable and improved. DISCHARGE DIAGNOSES: 1. Cellulitis of the right upper extremity. 2. Right elbow olecranon bursitis, status post incision and drainage. 3. Moderate obesity. CONSULTATIONS IN THE HOSPITAL: Include, 1. Orthopedics, Dr. Emmanuel Calvert. 2. Infectious Disease, Dr. Navarrete. PROCEDURES DURING THE HOSPITAL: Include, 1. X-ray of the right forearm and elbow. It did not show any fracture dislocation, bony destructio n, periosteal reaction or foreign body in the arm. Elbow x-ray was unremarkable as well without any fracture dislocation or bony destruction. 2. Incision and drainage of the right arm and right olecranon bursa by Dr. Calvert on 07/30/2017. 3. Ultrasound of the right upper extremity, which shows no evidence of DVT. 4. Wound VAC placement. ADMISSION HISTORY: Mr. Poole is a very pleasant 62-year-old otherwise healthy male who p resented to the emergency room for complaints of right upper extremity swelling. He has a history o f elbow injury 1 week prior to presentation. It started with a small cut, but then he noted that hi s right arm was getting more and more swollen and was associated with warmth, erythema, blister form ation and some drainage as well. He was hemodynamically stable at the time of presentation. His ite blood cell count was 16.8 and he was started on empiric antibiotics for right upper extremity ce llulitis. Orthopedics was consulted to evaluate for the elbow joint to rule out septic joint infect ion. Please see admission history and physical for further details. HOSPITAL COURSE: The patient was continued on IV antibiotics and Orthopedics saw the patient. They agreed that he most likely has septic olecranon bursitis along with a cellulitis secondary to that. He was taken to the OR and underwent incision and drainage of the right upper arm cellulitis as we ll as right olecranon bursitis incision and drainage. He tolerated the procedure very well. A woun d VAC was placed and Infectious Disease was consulted with regards to the choice of antibiotics. Hi s cultures from the wound grew MRSA. He was treated with vancomycin in the hospital, and after disc harge, he is given prescriptions to start taking clindamycin 300 mg q.i.d. for 2 weeks as per the ID directions. He will take probiotics with that and will follow up with Dr. Navrarete as an outpatient. He was seen and examined prior to discharge. This morning, he is hemodynamically stable and cleared by Orthopedics for discharge. No new issues voiced. PHYSICAL EXAMINATION: VITAL SIGNS: Temperature 98.0, pulse of 77, respirations 16, saturating 96% on room air, blood pres sure 152/96. GENERAL: No acute distress, awake, alert, oriented x3. CHEST: Clear to auscultation without any wheezing, rales, or rhonchi. Rate and rhythm is regular w ithout any murmur, rubs or gallops. ABDOMEN: Soft, nontender, nondistended. EXTREMITIES: Right upper extremity is in bandage. LABORATORY EXAMINATION: Blood cultures remained negative until date. Elbow wound culture showed MR RAMIREZ, which was sensitive to vancomycin and clindamycin. CBC shows WBCs at 9.9, which was 16.8 upon p resentation. Serum chemistries unremarkable. C-reactive protein improved from 15.23 to 2.89. Wound VAC was arranged with the help of the case management. The patient will follow up with outpat ient wound care clinic at [facility]. At this time, discharge plan was discussed with the patient who verbalized understanding. He will f ollow up and establish care with a primary care physician and will get health screening done as well . I discussed the discharge plan in detail with the patient, who verbalized understanding. Prescri ptions were provided prior to discharge. Total time spent in the discharge 32 minutes.
== END 2017-08-03 17:15 | disposition home or self-care (01) | DRG 501 ==
LOC: ERS 17:14 → T4-B 23:00
PROVIDERS: ADMIT Internal Medicine; ATTEND Internal Medicine
PROC: 0J9D0ZZ Drainage of Right Upper Arm Subcutaneous Tissue and Fascia, Open Approach (ICD-10-PCS; principal; 2017-07-30)
PROC: 0MB30ZZ Excision of Right Elbow Bursa and Ligament, Open Approach (ICD-10-PCS; 2017-07-30)
DX: M70.21 Olecranon bursitis, right elbow (principal); L03.113 Cellulitis of right upper limb; B95.62 Methicillin resistant Staphylococcus aureus infection as the cause of diseases classified elsewhere; E66.9 Obesity, unspecified; Z68.30 Body mass index [BMI] 30.0-30.9, adult
CPT/HCPCS: 36415; 36416; 80048; 80053; 80202; 81003; 81015; 83605; 85025; 86140; 87040; 87070; 87077; 87186; 87205; 96365; 96366; 96367; A4216; J0131; J1100; J1170; J1200; J1644; J1650; J1885; J2001; J2250; J2270; J2405; J2543; J2704; J2765; J3010; J3370; J3490; J7050

== ENCOUNTER 2017-08-06 12:30 | Outpatient (CLI) | payer BC ==
[2017-08-06] MEDS ORDERED: Sodium Chloride 0.9% 15 ML NEB ONE (17:08)
== END 2017-08-06 12:31 | disposition home or self-care (01) ==
LOC: WCC 12:30
PROVIDERS: ATTEND Family Medicine
DX: T81.89XD Other complications of procedures, not elsewhere classified, subsequent encounter (principal)
CPT/HCPCS: 97606; A4218

== ENCOUNTER 2017-08-12 13:53 | Outpatient (CLI) | payer BC ==
[2017-08-12] MEDS ORDERED: Lidocaine 4% Topical Sol 50 ML BOT ONE (17:54)
--- NOTE | 2017-08-12 18:13 | HP ---
DATE OF SERVICE: 08/12/2017 HISTORY OF PRESENT ILLNESS: Mr. Jerome Poole is a very pleasant 62-year-old gentleman who presents to the Wound Center for evaluation of a wound of the right elbow subsequent to incision and drainage of the right arm and right olecranon bursa on 07/30/[address] Emmanuel Calvert. Negative pressure therapy was initiated subsequent to surgery, and upon discharge from [facility], the patient was referred to the Wound Center for assistance with dressing changes of the wound VAC. The patient was discharged to home on clindamycin. Cultures of the elbow wound obtained on 07/30/2017 revealed the growth of MRSA. PAST MEDICAL HISTORY: Two ventral hernias. PAST SURGICAL HISTORY: Incision and drainage of right arm and right olecranon bursa on 07/30/2017. MEDICATIONS: 1. Flomax. 2. Multivitamin. 3. Clindamycin. 4. Probiotics. ALLERGIES: MORPHINE. SOCIAL HISTORY: Significant for tobacco use for 6 months during the patient's teenage years. Social history is also significant for the occasional consumption of alcohol since the patient's teenage years. FAMILY HISTORY: Negative for diabetes mellitus or coronary artery disease. PHYSICAL EXAMINATION: VITAL SIGNS: Temperature 97.7, pulse 98, respirations 18, and blood pressure 145/86. GENERAL: A 62-year-old gentleman lying on table in examination room in no acute distress. HEENT: Normocephalic, atraumatic. NECK: No nuchal rigidity. CHEST: Clear to auscultation. CARDIAC: Regular rate and rhythm. ABDOMEN: Soft. EXTREMITIES: A wound of the right elbow is present which measures approximately 1.2 x 1.9 cm. The wound is granulating. Nonviable tissue present within the wound margins was debrided with an excisional full-thickness debridement. No purulent drainage is associated with the wound. No erythema of the skin surrounding the wound is present. No maceration of the skin of the periwound is noted. No significant edema of the right upper extremity is present on exam today. NEUROLOGIC: Grossly nonfocal. ASSESSMENT AND PLAN: Right elbow wound as described above. Negative pressure therapy will be continued with dressing changes of the wound VAC 2 times per week here in the Wound Center. The patient has been reminded to continue clindamycin as prescribed at the time of discharge. I will see Mr. Poole again in 2 weeks. MTDD
== END 2017-08-12 13:54 | disposition home or self-care (01) ==
LOC: WCC 13:53
PROVIDERS: ATTEND Family Medicine
DX: T81.89XD Other complications of procedures, not elsewhere classified, subsequent encounter (principal)
CPT/HCPCS: 11042; 99203; G0463; J2001

== ENCOUNTER 2017-08-16 10:59 | Outpatient (CLI) | payer BC ==
[2017-08-16] MEDS ORDERED: Lidocaine 4% Topical Sol 50 ML BOT ONE (17:08)
[2017-08-16] MEDS ORDERED: Sodium Chloride 0.9% 15 ML NEB ONE (17:08)
== END 2017-08-16 11:00 | disposition home or self-care (01) ==
LOC: WCC 10:59
PROVIDERS: ATTEND Family Medicine
DX: T81.89XD Other complications of procedures, not elsewhere classified, subsequent encounter (principal)
CPT/HCPCS: 97602; A4218; J2001

== ENCOUNTER 2017-08-26 11:35 | Outpatient (CLI) | payer BC ==
[~2017-08-26 11:35] MED LIST: Lidocaine 2% Jelly 5 ML TUBE ONE; Sodium Chloride 0.9% 15 ML NEB ONE
--- NOTE | 2017-08-26 14:20 | PRG ---
DATE OF SERVICE: 08/26/2017 HISTORY: Mr. Jerome Poole is a very pleasant 62-year-old gentleman who presents to the Wound Center for evaluation of a wound of the right elbow, subsequent to incision and drainage of the right arm an d right olecranon bursa on 07/30/[address] Emmanuel Calvert. Negative pressure therapy was initiated s ubsequent to surgery, and upon discharge from [facility], the patient was refe rred to the Wound Center for assistance with dressing changes of the wound VAC. The patient was disc harged to home on clindamycin. Cultures of the elbow wound obtained on 07/30/2017 revealed the growt h of MRSA. The patient has completed a course of negative pressure therapy and is now performing vinicio ssing changes of Aquacel AG on a daily basis after cleansing and irrigation. PHYSICAL EXAMINATION: VITAL SIGNS: Temperature 97.7, pulse 97, respirations 18, blood pressure 137/89. EXTREMITIES: A wound of the right elbow is present, which measures approximately 1.5 x 0.8 cm. The dimensions of the wound at the time of the patient's visit on 08/19/2017 were approximately 1.5 x 1.0 cm. The wound is granulating. Nonviable tissue present within the wound margins was debrided with an excisional full-thickness debridement with the use of a curette. No purulent drainage is associat ed with the wound. No erythema of the skin surrounding the wound is present. No maceration of the s kin of the periwound is noted. No significant edema of the right upper extremity is present on exam today. ASSESSMENT AND PLAN: Right elbow wound as described above, dressing changes of Aquacel AG will be co ntinued on a daily basis after cleansing and irrigation. The patient will continue to perform his ow n dressing changes. I will see Mr. Poole again in two weeks.
== END 2017-08-26 11:36 | disposition home or self-care (01) ==
LOC: WCC 11:35
PROVIDERS: ATTEND Family Medicine
DX: S51.001D Unspecified open wound of right elbow, subsequent encounter (principal)
CPT/HCPCS: 11042; A4218

== ENCOUNTER 2017-09-09 11:28 | Outpatient (CLI) | payer BC ==
--- NOTE | 2017-09-09 12:32 | PRG ---
DATE OF SERVICE: 09/09/2017 HISTORY: Mr. Jerome Tejeda is a very pleasant 62-year-old gentleman accompanied by his , who pres ents to the [facility] for evaluation of a wound of the right elbow, subsequent to incision and frantz inage of the right arm and right olecranon bursa on 07/30/[address] Emmanuel Calvert. Negative pressur e therapy was initiated subsequent to surgery and upon discharge from [facility], the patient was referred to the Wound Center for assistance with dressing changes of the wound SC C. The patient was discharged to home on clindamycin. Cultures of the elbow wound obtained on 07/30 revealed no growth of MRSA. The patient has completed a course of negative pressure therapy an d is now performing dressing changes of Aquacel AG on a daily basis after cleansing and irrigation. PHYSICAL EXAMINATION: VITAL SIGNS: Temperature 97.4, pulse 88, respirations 18, and blood pressure 144/90. EXTREMITIES: A wound of the right elbow is present, which measures approximately 0.3 x 0.2 cm. The dimensions of the wound at the time of the patient's visit on 08/26/2017 were approximately 1.5 x 0.8 cm. The wound is granulating. Nonviable tissue present within the wound margins was debrided with an excisional full-thickness debridement with the use of a curet. No purulent drainage is associated with the wound. No erythema of the skin surrounding the wound is present. No maceration of the ski n of the periwound is noted. No significant edema of the right upper extremity is present on exam to day. ASSESSMENT AND PLAN: Right elbow wound as described above. Dressing changes of Aquacel AG will be c ontinued on a daily basis after cleansing and irrigation. The patient will continue to perform his o wn dressing changes. The wound has almost healed completely and Mr. Poole will be discharged from [facility] today with followup on a p.r.n. basis. The patient has been instructed to continue the precedi ng dressing changes until the wound has healed completely. The patient has been given a release in [facility] to return to work without restrictions.
[2017-09-09] MEDS ORDERED: Sodium Chloride 0.9% 15 ML NEB ONE (17:19)
[2017-09-09] MEDS ORDERED: Lidocaine 2% Jelly 5 ML TUBE ONE (17:19)
== END 2017-09-09 11:29 | disposition home or self-care (01) ==
LOC: WCC 11:28
PROVIDERS: ATTEND Family Medicine
DX: T81.89XD Other complications of procedures, not elsewhere classified, subsequent encounter (principal)
CPT/HCPCS: 11042; A4218

== ENCOUNTER 2017-12-03 16:59 | Inpatient (IN) | payer BC ==
[~2017-12-03 16:59] MED LIST changes: +ISOVUE-370 76%-LOCM 1 ML ONE; -Lidocaine 2% Jelly 5 ML TUBE ONE; -Sodium Chloride 0.9% 15 ML NEB ONE
[2017-12-03] MEDS ORDERED: Fentanyl 100 MCG/2 ML VIAL ONE ×2 (17:46→20:39)
[2017-12-03 17:55] LABS: #Eosinphils 0.2 thou/uL (0.0-0.7); #Lymphocytes 2.1 thou/uL (1.20-3.40); #Monocytes 1.1 thou/uL (0.11-0.59); #Neutrophils 5.7 thou/uL (1.40-6.50); %Basophils 0.5 % (0.0-1.0); %Eosinophils 2.5 % (0.0-10.0); %Lymphocytes 23.1 % (21.0-51.0); %Monocytes 11.6 % (0.0-10.0); %Neutrophils 62.3 % (42.0-75.0); Hemoglobin 15.9 g/dL (14.0-18.0); Mean Corpuscular HGB CONC 33.8 g/dL (32.0-36.0); Mean Corpuscular Hemoglobin 30.4 pg (27.0-31.0); Mean Corpuscular Volume 90.2 fl (80.0-94.0); Mean Platelet Volume 7.1 fL (7.4-10.4); Platelet Count 333 thou/uL (130-400); RBC Distribution Width 12.9 % (11.5-14.5); Red Blood Cell (RBC) Count 5.24 mill/uL (4.70-6.10); White Blood Cell (WBC) Count 9.2 thou/uL (4.8-10.8)
[2017-12-03] MEDS ORDERED: cefTRIAXone\\ROCEPHIN 2 GM in Sodium Chloride 0.9% 100 ML IVPB SCH (18:00)
[2017-12-03 18:19] LABS: ALT (SGPT) 36 U/L (8-55); AST (SGOT) 40 U/L (5-34); Albumin 3.9 g/dL (3.4-4.8); Alkaline Phosphatase 131 U/L (40-150); Anion Gap 8 mmol/L (10-20); BUN (Urea Nitrogen) 16 mg/dL (8.4-25.7); Bilirubin, Total 0.8 mg/dL (0.2-1.2); CRP (Inflammatory) 3.51 mg/dL (= or < 0.5); Calc. Creatinine Clearance 0 mL/min (70-130); Calcium 9.3 mg/dL (7.8-10.44); Carbon Dioxide 31 mmol/L (23-31); Chloride 103 mmol/L (98-107); Estimated GFR-MDRD 58; Glucose 117 mg/dL (80-115); Lipase 18 U/L (8-78); Magnesium 2.4 mg/dL (1.6-2.6); Potassium 4.1 mmol/L (3.5-5.1); Protein, Total 8.9 g/dL (5.8-8.1); Sodium 138 mmol/L (136-145)
--- NOTE | 2017-12-03 18:57 | CT ---
CT SCAN LEFT KNEE: 12/03/17 Multiple axial tomograms obtained from mid femur to mid tibia fibula with IV enhancement. HISTORY: Cellulitis left knee. Patellar bursa abscess. FINDINGS: There is diffuse inflammatory stranding and haziness in the subcutaneous tissues involving the anteri or distal thigh, left knee, and proximal tibial region. The findings are consistent with cellulitis. There is a more confluent area of density in the prepatellar tissues, although this is not fluid dens e by CT and may represent phlegmonous tissue rather than drainable abscess. There is a small joint ef fusion noted. There are degenerative changes at the left knee. Mild medial joint narrowing is seen wi th hypertrophic spurring from tibial spines and femoral condyles. Minimal spurring from tibial condyl es. No focal lytic or destructive process seen that would indicate osteomyelitis. IMPRESSION: 1. Inflammatory changes in the subcutaneous tissues anterior left knee. 2. Confluent opacity in the prepatellar tissues consistent with history of prepatellar bursitis. 3. Localized fluid or abscess collection is not identified. There may be some fluid in the prepa tellar bursa, although the densities are not fluid by CT. 4. Small joint effusion. 5. Degenerative changes at the left knee as described. POS: [facility]
--- NOTE | 2017-12-03 18:58 | RAD ---
LEFT KNEE: 12/03/17 Four views. HISTORY: Knee pain. There are mild degenerative changes noted. Mild spurring from the posterior patella as well as mild s purring from the tibial and femoral condyles as well as tibial spines. Joint spaces are maintained. N o joint effusion. No fracture or acute abnormality. IMPRESSION: Mild degenerative change. POS: [facility]
[2017-12-03] MEDS ORDERED: Lidocaine 1% (PF) 30 ML VIAL ONE (19:43)
[2017-12-03 19:52] LABS: Bilirubin Negative (Negative); Blood, Urine Negative (Negative); Clarity CLEAR (Clear); Glucose, Urine (Dipstick) Negative (Negative); Leukocyte Negative (Negative); Nitrite Negative (Negative); Protein, Urine (Dipstick) Negative (Neg-Trace)
[2017-12-03 19:57] LABS: Specific Gravity, Urine 1.048 (1.002-1.036)
[2017-12-03] MEDS ORDERED: Sodium Chloride 0.45% 1,000 ML IV SCH (21:50)
[2017-12-03] MEDS ORDERED: Ondansetron HCl/PF 4 MG/2 ML Vial IVP PRN (21:50)
[2017-12-03] MEDS ORDERED: Ondansetron ODT 4 MG TAB SL PRN (21:50)
[2017-12-03] MEDS ORDERED: Fentanyl 100 MCG/2 ML VIAL SLOW IVP PRN (21:51)
[2017-12-03] MEDS ORDERED: hydrALAZINE 20 MG/ML VIAL SLOW IVP PRN (23:19)
[2017-12-03] MEDS ORDERED: HYDROcodone/Acetaminophen 5/325 mg Tablet PO PRN (23:19)
[2017-12-03] MEDS ORDERED: Tamsulosin HCl 0.4 MG CAP PO SCH (23:30)
[2017-12-03 23:40] LABS: Hemoglobin A1c 6.2 % (4.0-6.0)
[2017-12-04] MEDS ORDERED: Milk Of Magnesia 30 ML UDCUP PO PRN (01:30)
[2017-12-04] MEDS ORDERED: Acetaminophen 325 MG TAB PO PRN (01:30)
[2017-12-04] MEDS ORDERED: Senokot 8.6 MG TAB PO PRN (01:30)
[2017-12-04] MEDS ORDERED: Ondansetron ODT 4 MG TAB PO PRN (01:30)
[2017-12-04] MEDS ORDERED: Mag-Al 1200 mg/1200 mg/30 ML UDCUP PO PRN (01:30)
[2017-12-04] MEDS ORDERED: Calcium Carbonate 500 MG ChewTAB PO PRN (01:30)
[2017-12-04] MEDS ORDERED: Ondansetron HCl/PF 4 MG/2 ML Vial IVP PRN (01:30)
--- NOTE | 2017-12-04 01:53 | HP ---
DATE OF ADMISSION: 12/03/2017 Patient was seen and examined on 12/03/2017. PRIMARY CARE PHYSICIAN: None. Patient goes to [facility] as needed. CHIEF COMPLAINT: Redness of the left lower extremity of 1 week duration. HISTORY OF PRESENT ILLNESS: Patient is a 62-year-old male who presented to the emergency room with s welling and redness around the left knee. Approximately 1 week ago, the patient noticed a small skin pustule over the left knee that progressiv codey got bigger. He later started having some drainage from the same wound. The redness progressivel y got worse over the last 3-4 days. He also had discomfort, moderate in intensity, worse on movement . Over the last 24 hours, he noticed some redness around his left leg as well for which he presented to the emergency room. He denies significant fever or chills. No injury reported. He was admitted at this facility last year for right elbow olecranon bursitis, status post I&D requiring wound VAC. PAST MEDICAL HISTORY: 1. Obesity. 2. Hernia. 3. Right-sided olecranon bursitis last year requiring I&D. PAST SURGICAL HISTORY: As discussed above. ALLERGIES: The patient is allergic to MORPHINE per previous record. CURRENT HOME MEDICATIONS: Patient is supposed to be on Flomax, which he has discontinued taking. SOCIAL HISTORY: He is a former smoker. Occasional alcohol use. FAMILY HISTORY: Negative for diabetes or heart disease. REVIEW OF SYSTEMS: The following complete review of systems was negative, unless otherwise mentioned in the HPI or below: Constitutional: Weight loss or gain, ability to conduct usual activities. Sk in: Rash, itching. Eyes: Double vision, pain. ENT/Mouth: Nose bleeding, neck stiffness, pain, te nderness. Cardiovascular: Palpitations, dyspnea on exertion, orthopnea. Respiratory: Shortness of breath, wheezing, cough, hemoptysis, fever or night sweats. Gastrointestinal: Poor appetite, abdom inal pain, heartburn, nausea, vomiting, constipation, or diarrhea. Genitourinary: Urgency, frequenc y, dysuria, nocturia. Musculoskeletal: Pain, swelling. Neurologic/Psychiatric: Anxiety, depressio n. Allergy/Immunologic: Skin rash, bleeding tendency. PHYSICAL EXAMINATION: VITAL SIGNS: Temperature 99.1, respirations 16, pulse of 93, blood pressure 163/91 with O2 saturatio n 97% on room air. GENERAL: A 62-year-old male in no apparent distress. Pain controlled. HEENT: Head atraumatic, normocephalic. Sclerae anicteric. Moist mucous membrane, no oral lesion. NECK: Supple, no JVD, no carotid bruit. LUNGS: Essentially clear to auscultation bilaterally. No wheezing, rales or rhonchi. HEART: S1, S2 present. Regular rate and rhythm. No murmur, rubs or gallops. ABDOMEN: Soft. Bowel sounds present. There is chronic abdominal wall hernia without any tenderness . Bowel sounds are present. EXTREMITIES: Right lower extremity without any swelling or redness. There is erythema over the ante rior left knee as well as left medial leg. There is dressing present over the knee lesion. There is also warmth and tenderness around this area. NEUROLOGIC: Grossly nonfocal, moves all four extremities. PSYCHIATRIC: Alert, awake, oriented x3. SKIN: Warm and dry except for mentioned above. LYMPH NODES: No palpable lymph nodes in the neck and groin. LABORATORY AND X-RAY FINDINGS: 1. CBC showed WBC 9.2 with hemoglobin 15.9, hematocrit 47.2, platelets 333. 2. ESR 39. 3. Hemoglobin A1c 6.2. Lactic acid on admission 2.8. Repeat 1.0. CRP 3.5, BUN 16, creatinine 1.25 . 4. X-ray of the left knee by my review showed mild degenerative changes. CT scan of the left lower extremity with contrast showed prepatellar bursitis with small joint effusion and inflammatory change s in the subcutaneous tissue over the anterior left knee. IMPRESSION: 1. Left lower extremity cellulitis/prepatellar bursitis. 2. Systemic inflammatory response syndrome secondary to #1. 3. Prediabetes with hemoglobin A1c 6.2. 4. Elevated inflammatory markers. 5. Chronic kidney disease stage 3. 6. History of right elbow olecranon bursitis requiring I&D last year. 7. Suspected benign prostatic hypertrophy. 8. Former smoker. PLAN: The patient will be monitored on the surgical unit. Orthopedic will be consulted. The patien t will be kept n.p.o. past midnight. Gentle IV hydration due to contrast exposure. Education for pr ediabetes and obesity. We will add Flomax per patient request. Plan of care was discussed with the patient in detail. He stated understanding.
[2017-12-04] MEDS: Sodium Chloride 0.9% 1,000 ML IV SCH ×2 (02:07→15:32)
[2017-12-04 07:29] VITALS: BMI 40.6
[2017-12-04] MEDS: Docusate 100 MG CAP PO SCH ×3 (07:52→21:10)
[2017-12-04] MEDS: Vancomycin HCl 1.75 GM in Sodium Chloride 0.9% 500 ML IVPB SCH ×2 (07:52→21:09)
[2017-12-04] MEDS: Saccharomyces boulardii 250 MG CAP PO SCH (07:53)
--- NOTE | 2017-12-04 17:26 | PDOC.PN ---
- Subjective Encounter Start Date: 12/04/17 Encounter Start Time: 17:15 Subjective: f/u for LLE/Knee cellulitis and prepatellar bursitis with staph spp. Tx wit -: Rocephin and Vancomycin. Plan for I&D in am. - Objective Resuscitation Status: Resuscitation Status FULL:Full Resuscitation MAR Reviewed: Yes Vital Signs & Weight: Vital Signs (12 hours) Temp Pulse Resp BP Pulse Ox 12/04/17 15:50 97.7 F 83 20 139/89 97 12/04/17 11:35 97.9 F 85 20 152/85 H 97 12/04/17 10:00 20 12/04/17 08:00 97.8 F 89 16 94 L 12/04/17 07:35 97.8 F 89 16 148/85 H 94 L Weight Weight 307 lb 15.772 oz I&O: 12/03/17 12/04/17 12/05/17 06:59 06:59 06:59 Intake Total 1240 Balance 1240 Result Diagrams: 12/03/17 17:40 12/03/17 17:40 Additional Labs: Microbiology 12/03/17 20:41 Knee - Left Bacterial Culture - Preliminary Staphylococcus aureus 12/03/17 19:48 Urine voided Urine Culture - Preliminary NO GROWTH AT 12 HOURS 12/03/17 17:44 Venous blood - Left Arm Blood Culture - Preliminary Specimen has been received and culture in progress. No Growth to date. 12/03/17 17:40 Venous blood - Right Hand Blood Culture - Preliminary Specimen has been received and culture in progress. No Growth to date. Laboratory Tests 12/03/17 12/03/17 12/03/17 17:31 17:40 17:40 ESR Westergren Hemoglobin A1c 6.2 H Lactic Acid 2.8 H C-Reactive Protein 3.51 H 12/03/17 12/03/17 17:40 22:20 ESR Westergren 39 Hemoglobin A1c Lactic Acid 1.0 C-Reactive Protein Phys Exam - Physical Examination Constitutional: NAD HEENT: PERRLA, oral pharynx no lesions Neck: no JVD, supple Respiratory: no wheezing, clear to auscultation bilateral Cardiovascular: RRR Gastrointestinal: soft, non-tender, no distention, positive bowel sounds L knee with edema and erythema Musculoskeletal: pulses present, edema present Neurological: normal sensation, moves all 4 limbs Psychiatric: A&O x 3 Skin: normal turgor, cap refill <2 seconds Dx/Plan (1) Cellulitis of knee, left Code(s): L03.116 - CELLULITIS OF LEFT LOWER LIMB Status: Acute Comment: Staph spp on culture, continue Vancomycin and Rocephin (2) Prepatellar bursitis Code(s): M70.40 - PREPATELLAR BURSITIS, UNSPECIFIED KNEE Status: Acute Qualifiers: Laterality: left Qualified Code(s): M70.42 - Prepatellar bursitis, left knee Comment: See #1, plan for I&D in am (3) SIRS (systemic inflammatory response syndrome) Code(s): R65.10 - SIRS OF NON-INFECTIOUS ORIGIN W/O ACUTE ORGAN DYSFUNCTION Status: Acute Comment: Improved, continue Rocephin and Vancomycin (4) Lactic acidosis Code(s): E87.2 - ACIDOSIS Status: Acute Comment: Resolving, supportive mgmt - Plan continue antibiotics, out of bed/ambulate Stable overall -: Continue Rocephin and Vancomycin -: Continue IVF's -: Plan for I&D 12/05/17 -: AM lab: BMP, CBC * .
[2017-12-04] MEDS ORDERED: cefTRIAXone\\ROCEPHIN 2 GM in Sodium Chloride 0.9% 100 ML IVPB SCH (18:00)
[2017-12-04] MEDS: Tamsulosin HCl 0.4 MG CAP PO SCH (21:09)
[2017-12-05 04:14] LABS: #Basophils 0.1 thou/uL (0.0-0.2); #Eosinphils 0.3 thou/uL (0.0-0.7); #Monocytes 0.8 thou/uL (0.11-0.59); #Neutrophils 4.4 thou/uL (1.40-6.50); %Eosinophils 4.3 % (0.0-10.0); %Lymphocytes 26.8 % (21.0-51.0); Hemoglobin 14.7 g/dL (14.0-18.0); Mean Corpuscular HGB CONC 33.5 g/dL (32.0-36.0); Mean Corpuscular Hemoglobin 30.1 pg (27.0-31.0); Mean Corpuscular Volume 89.8 fl (80.0-94.0); Mean Platelet Volume 6.6 fL (7.4-10.4); Platelet Count 306 thou/uL (130-400); RBC Distribution Width 12.8 % (11.5-14.5); White Blood Cell (WBC) Count 7.6 thou/uL (4.8-10.8)
[2017-12-05 04:38] LABS: Anion Gap 8 mmol/L (10-20); BUN (Urea Nitrogen) 11 mg/dL (8.4-25.7); Calc. Creatinine Clearance 189 mL/min (70-130); Calcium 9.3 mg/dL (7.8-10.44); Carbon Dioxide 29 mmol/L (23-31); Chloride 105 mmol/L (98-107); Estimated GFR-MDRD Greater than 90; Glucose 117 mg/dL (80-115); Potassium 3.6 mmol/L (3.5-5.1); Sodium 138 mmol/L (136-145)
[2017-12-05] MEDS: Sodium Chloride 0.9% 1,000 ML IV SCH ×2 (05:00→21:38)
[2017-12-05] MEDS: Vancomycin HCl 1.75 GM in Sodium Chloride 0.9% 500 ML IVPB SCH ×2 (07:30→20:40)
[2017-12-05] MEDS ORDERED: Neomycin-Polymyxin 1 ML AMP ONE ×2 (08:30→09:22)
[2017-12-05] MEDS ORDERED: Midazolam HCl 2 mg/2 ml Vial ONE (09:11)
[2017-12-05] MEDS ORDERED: Fentanyl 100 MCG/2 ML VIAL ONE ×2 (09:21→09:40)
[2017-12-05] MEDS ORDERED: HYDROmorphone 2 MG/ML VIAL SLOW IVP PRN (10:18)
[2017-12-05] MEDS ORDERED: Promethazine HCl 25 MG/ML VIAL IM PRN (10:18)
[2017-12-05] MEDS ORDERED: Meperidine HCl/PF 25 MG/ML VIAL SLOW IVP PRN (10:18)
[2017-12-05] MEDS ORDERED: Ondansetron HCl/PF 4 MG/2 ML Vial IVP PRN (10:18)
[2017-12-05] MEDS ORDERED: Promethazine HCl 25 MG/ML VIAL SLOW IVP PRN (10:18)
[2017-12-05] MEDS: Docusate 100 MG CAP PO SCH ×2 (11:14→21:41)
[2017-12-05] MEDS: Saccharomyces boulardii 250 MG CAP PO SCH (11:15)
--- NOTE | 2017-12-05 13:59 | CON ---
DATE OF CONSULTATION: 12/04/2017 REQUESTING PHYSICIAN: Dr. Reyes. CHIEF COMPLAINT: Left anterior knee pain, swelling, and redness x1 week. BRIEF HISTORY OF PRESENT ILLNESS: The patient is a 62-year-old gentleman who initially presented to the emergency room with a 1 week history of swelling and redness around the left knee. He reports ap proximately one week prior to this admission, he noted a small pustule at the anterior knee that prog ressively got bigger. It eventually ruptured and has now been draining some seropurulent material fo r approximately last 3 or 4 days. With the increasing drainage and increasing pain, he subsequently presented to the emergency room where he was found to have a draining prepatellar bursa that appeared infected. Of note, the patient is now about 6 months status post right elbow olecranon bursa irriga tion and debridement for a similar episode. PAST MEDICAL HISTORY: Remarkable for obesity as well as prior infection. PAST SURGICAL HISTORY: Remarkable for olecranon I&D in 2006. MEDICATIONS: None. ALLERGIES: MORPHINE which makes him agitated. SOCIAL HISTORY: He is a former smoker. Does not smoke currently. Reports occasional alcohol use. FAMILY HISTORY: Noncontributory for this current admission. REVIEW OF SYSTEMS: He does report some mild fevers and chills recently. Otherwise, denies chest davidson n or shortness of breath. Denies numbness or tingling in the lower extremity. PHYSICAL EXAMINATION: VITAL SIGNS: Temperature 99.1, heart rate 93, respiratory rate 16, and blood pressure 163/91. HEENT: Atraumatic, normocephalic. HEART: Shows a regular rate and rhythm without murmur. LUNGS: Clear to auscultation bilaterally with no wheezes or rhonchi. Chest wall is nontender. ABDOMEN: Round and soft. There is a chronic anterior wall hernia with no tenderness. EXTREMITIES: Remarkable for bilateral upper extremities that are atraumatic. He has a well healed p osterior incision at the right elbow. The right lower extremity also is atraumatic. Left lower extr emity remarkable for anterior knee with draining sinus communicating with the prepatellar bursa with seropurulent material coming from this wound. The erythema does extend around the anterior knee, alt anna there does not appear to be a knee effusion. He is able to flex and extend his knee with 90 de gree arc of motion with minimal increased pain. LABORATORY DATA: He was found to have white count of 9.2, hematocrit of 47.2 and 330,000 platelets. Sedimentation rate of 39 and C-reactive protein of 3.5. IMAGING DATA: X-rays and plain films of the left knee show mild degenerative changes but no obvious joint effusion. There is soft tissue swelling noted in the prepatellar bursa region. ASSESSMENT: Left septic prepatellar bursa with a history of diabetes. PLAN: At this time, the patient will be started on IV antibiotics. A culture was able to be obtaine d in the emergency room. We will plan on taking patient to the operating room for incision and drain age of this prepatellar bursa. I have discussed with patient the risks and benefits of the procedure . The risks include, but are not limited to bleeding, infection, worsening, nerve injury, DVT, PE, l oss of limb or life. The patient appears to understand and does wish to proceed. Consent will be ob tained prior to surgery.
--- NOTE | 2017-12-05 14:27 | OP ---
DATE OF SURGERY: 12/05/2017 PREOPERATIVE DIAGNOSIS: Left knee septic prepatellar bursa. POSTOPERATIVE DIAGNOSIS: Left knee septic prepatellar bursa. SURGICAL PROCEDURE: Incision and drainage of left prepatellar bursa. ANESTHESIA: General. SURGEON: Ceferino Sheppard M.D. TOURNIQUET TIME: Sixteen minutes at 300 mmHg. SPECIMEN: Swab sent for Gram stain, culture and sensitivity. DRAINS: [place] x1. COMPLICATIONS: None. OUTCOME: Satisfactory. INDICATIONS: The patient is a 62-year-old gentleman with a 1-week history of worsening right knee pa in and redness and now with drainage coming from his prepatellar bursa. After discussion with patien t including risks and benefits, we have decided to proceed with an incision and drainage procedure. Informed consent has been obtained. I believe all questions have been answered. PROCEDURE: The patient was brought to the operating room and a timeout performed followed by inducti on of general anesthesia. Next, a sterile prep and drape was performed of the left lower extremity. A midline anterior knee incision was then made centered over the small draining sinus communicating with the prepatellar bursa. After skin was sharply incised, dissection was carried down bluntly with seropurulent material coming from the prepatellar bursa. A finger was used to breakdown some septae of the bursa to open it into one contiguous cavity. Next some marginally viable fat tissue was debr ided sharply with the scalpel including skin and subcutaneous level. Once all necrotic tissue had be en sharply debrided, the wound was irrigated with 3 liters of normal saline using Pulsavac. At the c ompletion of this, no further nonviable tissue was encountered. The skin was closed with nylon loose ly superiorly and then a half-inch Harvey drain was placed at the inferior dependent portion of the wound. Next, a Xeroform gauze, Webril, and Marty wrap dressing was applied to the knee. Tourniquet wa s let down and then patient was transferred to recovery room in stable condition. There were no comp lications. He tolerated the procedure well.
--- NOTE | 2017-12-05 15:39 | PDOC.PN ---
- Subjective Encounter Start Date: 12/05/17 Encounter Start Time: 15:35 Subjective: f/u for L knee septic prepatellar bursitis s/p I&D 12/05/17. Feels ok over -: all but some BARROSO. BP elevated post-op. - Objective Resuscitation Status: Resuscitation Status FULL:Full Resuscitation MAR Reviewed: Yes Vital Signs & Weight: Vital Signs (12 hours) Temp Pulse Resp BP Pulse Ox 12/05/17 10:40 98.1 F 98 18 158/93 H 93 L 12/05/17 08:00 97.7 F 85 20 94 L 12/05/17 05:30 93 L 12/05/17 03:59 97.7 F 85 20 171/108 H 93 L Weight Weight 307 lb 15.772 oz I&O: 12/04/17 12/05/17 12/06/17 06:59 06:59 06:59 Intake Total 1240 720 Balance 1240 720 Result Diagrams: 12/05/17 03:57 12/05/17 03:57 Additional Labs: Microbiology 12/03/17 20:41 Knee - Left Bacterial Culture - Final Methicillin resistant S.aureus 12/03/17 19:48 Urine voided Urine Culture - Final NO GROWTH AT 36 HOURS 12/03/17 20:41 Knee - Left Bacterial Culture - Preliminary Staphylococcus aureus 12/03/17 19:48 Urine voided Urine Culture - Preliminary NO GROWTH AT 12 HOURS 12/03/17 17:44 Venous blood - Left Arm Blood Culture - Preliminary Specimen has been received and culture in progress. No Growth to date. 12/03/17 17:44 Venous blood - Left Arm Blood Culture - Preliminary NO GROWTH AT 48 HOURS 12/03/17 17:40 Venous blood - Right Hand Blood Culture - Preliminary Specimen has been received and culture in progress. No Growth to date. 12/03/17 17:40 Venous blood - Right Hand Blood Culture - Preliminary NO GROWTH AT 48 HOURS Laboratory Tests 12/03/17 12/03/17 12/03/17 17:31 17:40 17:40 ESR Westergren Creatinine 1.25 Hemoglobin A1c 6.2 H Lactic Acid 2.8 H C-Reactive Protein 3.51 H 12/03/17 12/03/17 17:40 22:20 ESR Westergren 39 Creatinine Hemoglobin A1c Lactic Acid 1.0 C-Reactive Protein Phys Exam - Physical Examination Constitutional: NAD HEENT: PERRLA, oral pharynx no lesions Neck: no JVD, supple Respiratory: no wheezing, clear to auscultation bilateral Cardiovascular: RRR Gastrointestinal: soft, non-tender, no distention, positive bowel sounds L knee with dressings in place Musculoskeletal: pulses present, edema present Neurological: normal sensation, moves all 4 limbs Psychiatric: A&O x 3 Skin: normal turgor, cap refill <2 seconds Dx/Plan (1) Cellulitis of knee, left Code(s): L03.116 - CELLULITIS OF LEFT LOWER LIMB Status: Acute Comment: MRSA on cx, continue Vancomycin, d/c Rocephin, likely can transition to Clindamycin or Bactrim for outpt po abx (2) Prepatellar bursitis Code(s): M70.40 - PREPATELLAR BURSITIS, UNSPECIFIED KNEE Status: Acute Qualifiers: Laterality: left Qualified Code(s): M70.42 - Prepatellar bursitis, left knee Comment: s/p I&D 12/05/17 (3) SIRS (systemic inflammatory response syndrome) Code(s): R65.10 - SIRS OF NON-INFECTIOUS ORIGIN W/O ACUTE ORGAN DYSFUNCTION Status: Acute Comment: Improved, continue Vancomycin (4) Lactic acidosis Code(s): E87.2 - ACIDOSIS Status: Acute Comment: Resolving, supportive mgmt (5) Elevated blood pressure reading Code(s): R03.0 - ELEVATED BLOOD-PRESSURE READING, W/O DIAGNOSIS OF HTN Status : Acute Comment: Serial monitoring, consider antihypertensive if persists - Plan continue antibiotics, PT/OT, out of bed/ambulate, DVT proph w/SCDs Stable overall -: Continue Vancomycin -: D/C Rocephin -: Local WCT -: Clonidine 0.1mg po q4h prn SBP>170 * Likely home in 48h
[2017-12-05] MEDS ORDERED: Lidocaine 1% PF 5 ML VIAL ONE (15:51)
[2017-12-05] MEDS ORDERED: Ketorolac Tromethamine 30 MG/ML VIAL ONE (15:51)
[2017-12-05] MEDS ORDERED: cloNIDine 0.1 MG TAB PO PRN (15:51)
[2017-12-05] MEDS ORDERED: Ondansetron HCl/PF 4 MG/2 ML Vial ONE (15:51)
[2017-12-05] MEDS ORDERED: PROPOFOL 200 MG/20 ML VIAL ONE (15:51)
[2017-12-05 19:20] LABS: Vancomycin, Trough 16.7 ug/mL
[2017-12-05] MEDS: Tamsulosin HCl 0.4 MG CAP PO SCH (20:40)
[2017-12-06] MEDS: Vancomycin HCl 1.75 GM in Sodium Chloride 0.9% 500 ML IVPB SCH ×2 (08:40→20:57)
[2017-12-06] MEDS: Saccharomyces boulardii 250 MG CAP PO SCH (08:41)
[2017-12-06] MEDS: Docusate 100 MG CAP PO SCH ×2 (08:41→21:19)
--- NOTE | 2017-12-06 18:07 | PDOC.PN ---
- Subjective Encounter Start Date: 12/06/17 Encounter Start Time: 18:00 Subjective: f/u s/p L knee I&D for septic prepatellar bursitis showing MRSA currently -: on Vancomycin. Some knee pain but overall doing ok. - Objective Resuscitation Status: Resuscitation Status FULL:Full Resuscitation Vital Signs & Weight: Vital Signs (12 hours) Temp Pulse Resp BP Pulse Ox 12/06/17 16:47 97.8 F 87 16 156/95 H 96 12/06/17 11:43 97.6 F 90 18 162/96 H 97 12/06/17 08:34 98.2 F 90 16 96 12/06/17 07:55 98.2 F 90 16 139/79 96 12/06/17 06:20 149/92 H Weight Weight 307 lb 15.772 oz I&O: 12/05/17 12/06/17 12/07/17 06:59 06:59 06:59 Intake Total 1240 720 990 Balance 1240 720 990 Result Diagrams: 12/05/17 03:57 12/05/17 03:57 Additional Labs: Microbiology 12/03/17 20:41 Knee - Left Bacterial Culture - Final Methicillin resistant S.aureus 12/03/17 19:48 Urine voided Urine Culture - Final NO GROWTH AT 36 HOURS 12/03/17 20:41 Knee - Left Bacterial Culture - Preliminary Staphylococcus aureus 12/03/17 19:48 Urine voided Urine Culture - Preliminary NO GROWTH AT 12 HOURS 12/03/17 17:44 Venous blood - Left Arm Blood Culture - Preliminary Specimen has been received and culture in progress. No Growth to date. 12/03/17 17:44 Venous blood - Left Arm Blood Culture - Preliminary NO GROWTH AT 48 HOURS 12/03/17 17:40 Venous blood - Right Hand Blood Culture - Preliminary Specimen has been received and culture in progress. No Growth to date. 12/03/17 17:40 Venous blood - Right Hand Blood Culture - Preliminary NO GROWTH AT 48 HOURS Laboratory Tests 12/03/17 12/03/17 12/03/17 17:31 17:40 17:40 ESR Westergren Creatinine 1.25 Hemoglobin A1c 6.2 H Lactic Acid 2.8 H C-Reactive Protein 3.51 H 12/03/17 12/03/17 17:40 22:20 ESR Westergren 39 Creatinine Hemoglobin A1c Lactic Acid 1.0 C-Reactive Protein Phys Exam - Physical Examination Constitutional: NAD HEENT: PERRLA, oral pharynx no lesions Neck: no JVD, supple Respiratory: no wheezing, clear to auscultation bilateral Cardiovascular: RRR Gastrointestinal: soft, non-tender, no distention, positive bowel sounds L knee edema Musculoskeletal: pulses present, edema present Neurological: normal sensation, moves all 4 limbs Psychiatric: A&O x 3 Skin: normal turgor, cap refill <2 seconds Dx/Plan (1) Cellulitis of knee, left Code(s): L03.116 - CELLULITIS OF LEFT LOWER LIMB Status: Acute Comment: MRSA on cx, continue Vancomycin, d/c Rocephin, likely can transition to Clindamycin or Bactrim for outpt po abx (2) Prepatellar bursitis Code(s): M70.40 - PREPATELLAR BURSITIS, UNSPECIFIED KNEE Status: Acute Qualifiers: Laterality: left Qualified Code(s): M70.42 - Prepatellar bursitis, left knee Comment: s/p I&D 12/05/17- POD#1, local wound care (3) SIRS (systemic inflammatory response syndrome) Code(s): R65.10 - SIRS OF NON-INFECTIOUS ORIGIN W/O ACUTE ORGAN DYSFUNCTION Status: Acute Comment: Improved, continue Vancomycin (4) Lactic acidosis Code(s): E87.2 - ACIDOSIS Status: Acute Comment: Resolving, supportive mgmt (5) Elevated blood pressure reading Code(s): R03.0 - ELEVATED BLOOD-PRESSURE READING, W/O DIAGNOSIS OF HTN Status : Acute Comment: Serial monitoring, start Lisinopril 10mg daily, titrate to clinical response - Plan continue antibiotics, PT/OT, social science instructor, out of bed/ambulate, DVT proph w/ SCDs Stable overall -: Continue Vancomycin likely transition to Clindamycin or Bactrim -: Local WCT -: Start Lisinopril 10mg daily -: Likely home 11/12/17 * .
[2017-12-06] MEDS ORDERED: Lisinopril 10 MG TAB PO SCH (18:15)
[2017-12-06] MEDS: Tamsulosin HCl 0.4 MG CAP PO SCH (20:57)
[2017-12-07] MEDS: Saccharomyces boulardii 250 MG CAP PO SCH (08:42)
[2017-12-07] MEDS: Vancomycin HCl 1.75 GM in Sodium Chloride 0.9% 500 ML IVPB SCH (08:42)
[2017-12-07] MEDS: Docusate 100 MG CAP PO SCH (08:42)
[2017-12-07] MEDS ORDERED: Lisinopril 10 MG TAB PO SCH (09:00)
--- NOTE | 2017-12-07 10:16 | PDOC.PN ---
- Subjective Encounter Start Date: 12/07/17 Encounter Start Time: 10:15 Pt seen and exmained, chart reviewe din its entrety, thsi is my first visit with this patient. Admitted with prepatellar bursitis, S/P I&S 12/05, cultures sent,. both Specimens with MRSA, sensitive to Tetracycline, Clinda, Vanc, TMP/STX, and linezolid. pt is 307 pounds, normal renal function with GFR > 90 today. No F/C, no N/v/d/C. Pain well controlled. 10 point ROS performed and neg for all systems except as per HPI - Objective Resuscitation Status: Resuscitation Status FULL:Full Resuscitation MAR Reviewed: Yes Vital Signs & Weight: Vital Signs (12 hours) Temp Pulse Resp BP BP Pulse Ox 12/07/17 08:42 142/88 H 12/07/17 08:05 97.8 F 81 18 142/88 H 94 L 12/07/17 04:10 98 F 82 16 117/72 95 12/07/17 00:00 98.2 F 81 15 141/80 H 95 Weight Weight 307 lb 15.772 oz I&O: 12/06/17 12/07/17 12/08/17 06:59 06:59 06:59 Intake Total 720 2230 Balance 720 2230 Result Diagrams: 12/05/17 03:57 12/05/17 03:57 Radiology Reviewed by me: Yes EKG Reviewed by me: Yes Phys Exam - Physical Examination Constitutional: NAD HEENT: PERRLA, moist MMs, sclera anicteric, oral pharynx no lesions Neck: no nodes, no JVD, supple, full ROM Respiratory: no wheezing, no rales, no rhonchi, clear to auscultation bilateral Cardiovascular: RRR, no significant murmur, no rub Gastrointestinal: soft, non-tender, no distention, positive bowel sounds Musculoskeletal: pulses present, edema present left knee dressing C/D/i, no strikethrough Neurological: non-focal, normal sensation, moves all 4 limbs Lymphatic: no nodes Psychiatric: normal affect Skin: no rash, normal turgor, cap refill <2 seconds Dx/Plan (1) MRSA (methicillin resistant Staphylococcus aureus) infection Code(s): A49.02 - METHICILLIN RESIS STAPH INFECTION, UNSP SITE Status: Acute (2) Prepatellar bursitis, left knee Code(s): M70.42 - PREPATELLAR BURSITIS, LEFT KNEE Status: Acute (3) Elevated blood pressure reading Code(s): R03.0 - ELEVATED BLOOD-PRESSURE READING, W/O DIAGNOSIS OF HTN Status : Acute Comment: Serial monitoring, start Lisinopril 10mg daily, titrate to clinical response. fairly well controlle,d will continue ast current dose in setting of decent control and likelihood of d/C soon (4) Lactic acidosis Code(s): E87.2 - ACIDOSIS Status: Resolved Comment: resolved (5) SIRS (systemic inflammatory response syndrome) Code(s): R65.10 - SIRS OF NON-INFECTIOUS ORIGIN W/O ACUTE ORGAN DYSFUNCTION Status: Resolved Comment: Improved, continue Vancomycin (6) Obesity (BMI 30-39.9) Code(s): E66.9 - OBESITY, UNSPECIFIED Status: Chronic - Plan cont current plan of care, continue antibiotics, PT/OT * . would recommend trnasitoning to doxycycline 100mg po BOD with close follow up OR Bactrim DS 2 tab po TID for weight and renal-based dosing. would not use clinda because doses needed to treat bursitis higher than can be tolerated orally. favor bactrim over doxy home when ortho ready
[2017-12-07] MEDS ORDERED: Sulfameth/Trimethoprim DS 800-160mg TAB PO SCH ×2 (16:30→21:00)
[2017-12-07 17:41] VITALS: BP 154/88; TEMP 98.3
== END 2017-12-07 18:40 | disposition home or self-care (01) | DRG 488 ==
LOC: ERS 16:59 → SURG B 21:44
PROVIDERS: ADMIT Family Medicine; ATTEND Family Medicine
PROC: 0M9P3ZX Drainage of Left Knee Bursa and Ligament, Percutaneous Approach, Diagnostic (ICD-10-PCS; 2017-12-03)
PROC: 0S9D00Z Drainage of Left Knee Joint with Drainage Device, Open Approach (ICD-10-PCS; principal; 2017-12-05)
PROC: 0MBP0ZZ Excision of Left Knee Bursa and Ligament, Open Approach (ICD-10-PCS; 2017-12-05)
DX: M71.162 Other infective bursitis, left knee (principal); Z68.41 Body mass index [BMI] 40.0-44.9, adult; E87.2 Acidosis; E66.01 Morbid (severe) obesity due to excess calories; N18.3 Chronic kidney disease, stage 3 (moderate); L03.116 Cellulitis of left lower limb; Z88.5 Allergy status to narcotic agent; Z87.891 Personal history of nicotine dependence; R73.03 Prediabetes; N40.0 Benign prostatic hyperplasia without lower urinary tract symptoms; B95.62 Methicillin resistant Staphylococcus aureus infection as the cause of diseases classified elsewhere; R03.0 Elevated blood-pressure reading, without diagnosis of hypertension
CPT/HCPCS: 36415; 80048; 80053; 80202; 81003; 83036; 83605; 83690; 83735; 85025; 85652; 86140; 87040; 87070; 87077; 87086; 87186; 87205; 96361; 96365; 96367; 96375; 96376; A4216; J0696; J1885; J2001; J2250; J2405; J2704; J3010; J3370; J7050

== ENCOUNTER 2018-09-06 10:44 | Outpatient (CLI) | payer BC ==
--- NOTE | 2018-09-06 13:18 | EKG ---
Test Reason : Blood Pressure : / mmHG Vent. Rate : 078 BPM Atrial Rate : 078 BPM P-R Int : 220 ms QRS Dur : 116 ms QT Int : 388 ms P-R-T Axes : 057 100 032 degrees QTc Int : 442 ms Sinus rhythm with 1st degree A-V block Rightward axis Low voltage QRS Incomplete right bundle branch block Borderline ECG No previous ECGs available Confirmed by JUDY MCRAE, DR. Hameed ([id number]) on 09/06/2018 1:18:14 PM Referred By: LEIGHTON Confirmed By:DR. Yoseph KIM MD
== END 2018-09-06 10:45 | disposition home or self-care (01) ==
LOC: LABBT 10:44
PROVIDERS: ATTEND Specialist
DX: Z01.810 Encounter for preprocedural cardiovascular examination (principal); K42.9 Umbilical hernia without obstruction or gangrene
CPT/HCPCS: 93005; 93010

== ENCOUNTER → 2018-09-07 | Day surgery (SDC) | payer BC ==
[2018-09-06 11:03] VITALS: BMI 39.8
--- NOTE | 2018-09-06 19:23 | HP ---
HISTORY OF PRESENT ILLNESS: Jerome Poole is a 63-year-old male, morbidly obese, 42 BMI, has an umbilical hernia, for which I would recommend that he repair in October 2015, when I initially saw him. He has procrastinated this and now reports approximately the same weight with an enlarged umbilical hernia protruding. Plan is to repair that with robot using mesh. previously discussed, and he understands risks and benefits. We will proceed. PAST MEDICAL HISTORY: Morbid obesity. PAST SURGICAL HISTORY: Incision and drainage of right elbow and knee infection, skin and soft tissue. SOCIAL HISTORY: Tobacco, none. Alcohol, none. The patient works at [employer]. He is . ALLERGIES: NONE. REVIEW OF SYSTEMS: Noncontributory. FAMILY HISTORY: Noncontributory. MEDICATIONS: 1. Flomax 0.4 mg daily. 2. Multivitamins daily. PHYSICAL EXAMINATION: VITAL SIGNS: 314 pounds, 72 inches, 42 BMI. Blood pressure 157/85, heart rate 59, temperature 98.4 degrees. HEAD, EYES, EARS, NOSE, AND THROAT: Unremarkable. LUNGS: Clear to auscultation. CARDIAC: Regular rhythm without murmur or gallop. ABDOMEN: Soft, obese, protuberant umbilical hernia thin skin. Morbid obesity. EXTREMITIES: Unremarkable. ASSESSMENT: Umbilical hernia. PLAN: Repair using mesh. He understands risks and benefits, consent. Ideally, weight loss should be considered, but the skin is so thin that we will proceed. Job ID: [id number]
[~2018-09-07] MED LIST changes: +Bupivacaine/Epinephrine 0.25% 30 ML VIAL ONE; +CEFAZOLIN 2 GM/50 ML BAG ONE; +Dexamethasone 20 MG/5 ML VIAL ONE; +Fentanyl 100 MCG/2 ML VIAL ONE; +Fentanyl 250 MCG/5 ML VIAL ONE; +Glycopyrrolate 0.2 MG/ML 5 ML SYRINGE ONE; +HYDROcodone/Acetaminophen 5/325 mg Tablet ONE; -ISOVUE-370 76%-LOCM 1 ML ONE; +Ketorolac Tromethamine 30 MG/ML VIAL ONE; +Ondansetron PF 4 MG/2 ML Vial ONE; +PHENYLEPHRINE-NS 100 MCG/ML 10 ML SYRINGE ONE; +PROPOFOL 200 MG/20 ML VIAL ONE; +Rocuronium Bromide 50 MG/5 ML VIAL ONE; +Tamsulosin HCl 0.4 MG CAP ONE
--- NOTE | 2018-09-07 19:33 | OP ---
DATE OF PROCEDURE: 09/07/2018 PREOPERATIVE DIAGNOSES: Very large incarcerated umbilical and ventral hernia (to the right of the umbilicus, incarcerated omentum). PROCEDURES PERFORMED: 1. Robotic decompression of incarcerated umbilical and ventral hernia. 2. Robotic laparoscopic closure of fascial defect with #1 V-Loc. 3. Reinforcement of fascial closure with 10 x 15 cm mesh, secured with 2-0 V-Loc. 4. Umbilicoplasty resecting the massively stretched out redundant umbilical skin with layer closure of the defect. ANESTHESIA: General with local of 0.5% Marcaine with epinephrine 30 mL. DESCRIPTION OF PROCEDURE: The patient was taken to the operating room. Under general anesthesia, Valencia catheter was placed at the beginning and removed at the end, although leaving 180 mL of saline in the bladder prior to removal. Abdomen was prepared with ChloraPrep and draped in routine fashion. Bilateral subcostal incision was made and pneumoperitoneum established to 15 mmHg with a Veress needle and in this replaced with 8 mm ports placed on the other side under laparoscopic visualization. A left subxiphoid incision was made falciform and the 11 mm port placed. Balloon catheter held in place and the robot was docked, positioned, and used to reduce the incarcerated umbilical and ventral hernia. This was full of omentum that was reduced using cautery for hemostasis. Once the two herniated defects were decompressed of omentum, the hernia defects were closed with continuous suture of #1 V-Loc. The ventral hernia defect was just to the patient's right of the umbilical hernia, approximately 3 cm with a fascial bridge and continuous suture of #1 V-Loc used to approximate these fascial defects transversely. A 10 x 15 cm Ventralight mesh inserted and secured with circumferential suture of 2-0 V-Loc after reducing pneumoperitoneum to 11 mmHg. Once this repair was accomplished and all needles were removed and sutures removed, we then turned into the massively redundant skin, which measured probably 20 x 15 cm and protruded massively about the planar surface of the abdominal wall. This was excised transversely. The resulting skin and subcutaneous defect were irrigated. Hemostasis gained with a cautery and this wound approximated by approximating subcutaneous tissues with 3-0 Monocryl on skin with subdermal 4-0 Monocryl and port sites were approximated with 4-0 Monocryl subdermal. There was a 9 cm skin defect closed in layer after the redundant skin was removed. Dermabond applied. The patient tolerated the procedure well. Job ID: [id number]
== END ==
LOC: SDC 06:00
PROVIDERS: ATTEND Specialist
PROC: 0WUF4JZ Supplement Abdominal Wall with Synthetic Substitute, Percutaneous Endoscopic Approach (ICD-10-PCS; principal; 2018-09-07)
PROC: 0WQF4ZZ Repair Abdominal Wall, Percutaneous Endoscopic Approach (ICD-10-PCS; principal; 2018-09-07)
PROC: 0HB7XZZ Excision of Abdomen Skin, External Approach (ICD-10-PCS; principal; 2018-09-07)
DX: K42.0 Umbilical hernia with obstruction, without gangrene (principal); K43.6 Other and unspecified ventral hernia with obstruction, without gangrene; L98.7 Excessive and redundant skin and subcutaneous tissue; N52.9 Male erectile dysfunction, unspecified; E66.01 Morbid (severe) obesity due to excess calories; Z68.41 Body mass index [BMI] 40.0-44.9, adult; Z79.899 Other long term (current) drug therapy; Z88.5 Allergy status to narcotic agent
CPT/HCPCS: 93005; 93010; 96374; J0131; J1100; J1885; J2405; J2704; J3010

== ENCOUNTER 2021-09-16 13:29 | Outpatient (CLI) | payer MEDICARE ==
[2021-09-16 15:54] LABS: Bilirubin Neg (Negative); Blood, Urine 150 (Negative); Clarity Cloudy (Clear); Glucose, Urine (Dipstick) >=1000 mg/dL (Negative); Ketone, Urine Negative (Negative); Leukocyte 500 (Negative); Nitrite Negative (Negative); Protein, Urine (Dipstick) 30 mg/dl (Neg-Trace); Urobilinogen Normal mg/dL (Less than 2)
[2021-09-16 16:01] LABS: Hemoglobin 15.3 g/dL (13.5-17.5); Mean Corpuscular Hemoglobin 28.5 pg (27.0-33.0); Mean Corpuscular Volume 86.4 fl (81.2-95.1); Mean Platelet Volume 10.2 fl (7.4-10.4); Platelet Count 242 10x3/uL (150-450); RBC Distribution Width 13.2 % (11.5-14.5); Red Blood Cell (RBC) Count 5.36 10x6/uL (4.32-5.72); White Blood Cell (WBC) Count 9.6 10x3/uL (3.5-10.5)
[2021-09-16 16:07] LABS: Anion Gap 14 mmol/L (10-20); BUN (Urea Nitrogen) 9 mg/dL (8.4-25.7); Calc. Creatinine Clearance 0 mL/min (70-130); Calcium 8.9 mg/dL (7.8-10.44); Carbon Dioxide 26 mmol/L (23-31); Chloride 100 mmol/L (98-107); Glucose 372 mg/dL (80-115); Potassium 3.7 mmol/L (3.5-5.1); Sodium 136 mmol/L (136-145)
[2021-09-16 16:09] LABS: PTT 26.9 sec (22.0-33.0); Prothrombin Time 10.9 sec (9.5-12.1)
[2021-09-16 16:28] LABS: Bacteria/HPF 1+ HPF (None Seen); RBC/HPF 0-3 HPF (0-3); Squamous Epithelial 0-3 HPF (0-3); WBC/HPF Greater Than 50 HPF (0-3); Yeast-Budding 4+ HPF (None Seen)
[2021-09-17 11:24] LABS: SARS-CoV-2 PCR by NAA Not Detected (NotDetected)
== END 2021-09-16 13:30 | disposition home or self-care (01) ==
LOC: LABBT 13:29
PROVIDERS: ATTEND Urology
DX: Z01.818 Encounter for other preprocedural examination (principal); N40.1 Benign prostatic hyperplasia with lower urinary tract symptoms; Z20.822 Contact with and (suspected) exposure to COVID-19
CPT/HCPCS: 80048; 81001; 85027; 85610; 85730; 87086; 93005; U0003; U0005; 93010

== ENCOUNTER 2021-09-18 08:03 | Inpatient (IN) | payer MEDICARE ==
[2021-09-17 12:44] VITALS: BMI 38.5
[2021-09-18] MEDS ORDERED: Levofloxacin 500 mg/D5W 100 ml Premix Bag ONE (10:57)
[2021-09-18] MEDS ORDERED: B & O ONE (11:25)
[2021-09-18] MEDS ORDERED: Insulin Regular 300 UNITS/3 ML VIAL ONE (11:40)
[2021-09-18] MEDS ORDERED: Insulin Regular 300 UNITS/3 ML VIAL SC SCH (12:15)
[2021-09-18] MEDS ORDERED: PROPOFOL 200 MG/20 ML VIAL ONE (12:36)
[2021-09-18] MEDS ORDERED: Ondansetron PF 4 MG/2 ML Vial ONE (12:36)
[2021-09-18] MEDS ORDERED: Succinylcholine 200 MG/10 ml SYRINGE FS ONE (12:36)
[2021-09-18] MEDS ORDERED: Lidocaine 1% PF 5 ML VIAL ONE (12:36)
[2021-09-18] MEDS ORDERED: Fluconazole In NaCl,Iso-Osm 100 MG in Admixture Fee 1 EACH IVPB SCH (13:00)
[2021-09-18] MEDS ORDERED: Dextrose 5% in Water 1,000 ML IV PRN (13:59)
[2021-09-18] MEDS ORDERED: Hyoscyamine Sulfate SL 0.125 mg Tablet SL PRN (13:59)
[2021-09-18] MEDS ORDERED: Acetaminophen 500 MG TAB PO PRN (13:59)
[2021-09-18] MEDS ORDERED: Dextrose 50% Abboject 50 ML SYRINGE SLOW IVP PRN (13:59)
[2021-09-18] MEDS ORDERED: Ondansetron PF 4 MG/2 ML Vial IVP PRN (13:59)
[2021-09-18] MEDS ORDERED: diphenhydrAMINE 25 MG CAP PO PRN (13:59)
[2021-09-18] MEDS ORDERED: hydrALAZINE 20 MG/ML VIAL SLOW IVP PRN (13:59)
[2021-09-18] MEDS ORDERED: Oxybutynin 5 MG TAB PO PRN (13:59)
[2021-09-18] MEDS ORDERED: Mag-Al 1200 mg/1200 mg/30 ML UDCUP PO PRN (13:59)
[2021-09-18] MEDS ORDERED: Phenazopyridine HCl 97.5 MG TABLET PO PRN (13:59)
[2021-09-18] MEDS ORDERED: traMADol HCl 50 MG TAB PO PRN ×2 (14:03)
[2021-09-18] MEDS ORDERED: Promethazine HCl 25 MG/ML VIAL IM PRN (14:10)
[2021-09-18] MEDS ORDERED: Meperidine HCl/PF 25 MG/ML VIAL SLOW IVP PRN (14:10)
[2021-09-18] MEDS ORDERED: Promethazine HCl 25 MG/ML VIAL IVPB PRN (14:10)
[2021-09-18] MEDS ORDERED: Ondansetron HCl/PF 4 MG/2 ML Vial IVP PRN (14:10)
[2021-09-18] MEDS ORDERED: Fentanyl 100 MCG/2 ML VIAL ONE ×3 (14:13→15:00)
[2021-09-18] MEDS ORDERED: FLU VACC QS2021-22(65YR UP)/PF 240 MCG/0.7 ML SYRINGE IM ONE (18:30)
[2021-09-18] MEDS: HumaLOG 300 UNITS/3 ML VIAL SC PRN ×2 (18:36→21:07)
[2021-09-18] MEDS: Docusate 100 MG CAP PO SCH (20:42)
[2021-09-18] MEDS ORDERED: Acetaminophen 325 MG TAB PO PRN (23:56)
[2021-09-18] MEDS ORDERED: Bisacodyl 5 MG TAB PO PRN (23:56)
[2021-09-18] MEDS ORDERED: HumaLOG 300 UNITS/3 ML VIAL SC PRN (23:59)
[2021-09-19] MEDS: HumaLOG 300 UNITS/3 ML VIAL SC PRN ×2 (05:36→17:37)
[2021-09-19 05:44] LABS: Hemoglobin A1c 10.2 % (4.0-6.0)
[2021-09-19 05:54] LABS: Anion Gap 11 mmol/L (10-20); BUN (Urea Nitrogen) 13 mg/dL (8.4-25.7); Calc. Creatinine Clearance 128 mL/min (70-130); Calcium 8.4 mg/dL (7.8-10.44); Carbon Dioxide 24 mmol/L (23-31); Chloride 99 mmol/L (98-107); Glucose 233 mg/dL (80-115); Potassium 4.4 mmol/L (3.5-5.1); Sodium 130 mmol/L (136-145)
[2021-09-19] MEDS: Fluconazole 100 MG TAB PO SCH (08:39)
[2021-09-19] MEDS: Famotidine 20 MG TAB PO SCH ×2 (08:39→21:30)
[2021-09-19] MEDS: Docusate 100 MG CAP PO SCH ×2 (08:41→21:30)
[2021-09-19] MEDS ORDERED: Piperacillin/Tazobactam 3.375 GM in Sodium Chloride 0.9% 100 ML IVPB SCH ×2 (10:45→12:00)
[2021-09-19] MEDS: Piperacillin/Tazobactam 3.375 GM in Sodium Chloride 0.9% 100 ML IVPB SCH (18:15)
[2021-09-19] MEDS: metFORMIN 500 MG TAB PO SCH (18:16)
[2021-09-20] MEDS: Piperacillin/Tazobactam 3.375 GM in Sodium Chloride 0.9% 100 ML IVPB SCH ×3 (02:30→18:12)
[2021-09-20 05:38] LABS: #Eosinphils 0.1 thou/uL (0.0-0.7); #Lymphocytes 1.2 thou/uL (1.20-3.40); #Monocytes 1.6 thou/uL (0.11-0.59); #Neutrophils 11.9 thou/uL (1.40-6.50); %Basophils 0.2 % (0.0-1.0); %Eosinophils 0.5 % (0.0-10.0); %Lymphocytes 8.2 % (21.0-51.0); %Monocytes 10.5 % (0.0-10.0); %Neutrophils 80.6 % (42.0-75.0); Hemoglobin 15.8 g/dL (14.0-18.0); Mean Corpuscular HGB CONC 33.5 g/dL (32.0-36.0); Mean Corpuscular Volume 89.4 fL (78.0-98.0); Mean Platelet Volume 7.1 fL (7.4-10.4); Platelet Count 223 thou/uL (130-400); RBC Distribution Width 12.8 % (11.5-14.5); Red Blood Cell (RBC) Count 5.28 mill/uL (4.70-6.10); White Blood Cell (WBC) Count 14.8 thou/uL (4.8-10.8)
[2021-09-20 06:01] LABS: Anion Gap 16 mmol/L (10-20); BUN (Urea Nitrogen) 16 mg/dL (8.4-25.7); Calc. Creatinine Clearance 123 mL/min (70-130); Calcium 8.2 mg/dL (7.8-10.44); Carbon Dioxide 17 mmol/L (23-31); Chloride 97 mmol/L (98-107); Glucose 251 mg/dL (80-115); Potassium 4.4 mmol/L (3.5-5.1); Sodium 126 mmol/L (136-145)
[2021-09-20] MEDS: HumaLOG 300 UNITS/3 ML VIAL SC PRN ×3 (06:11→18:13)
[2021-09-20] MEDS: metFORMIN 500 MG TAB PO SCH ×2 (08:21→18:13)
[2021-09-20] MEDS: Lisinopril 5 MG TAB PO SCH (08:22)
[2021-09-20] MEDS: Fluconazole 100 MG TAB PO SCH (08:22)
[2021-09-20] MEDS: Famotidine 20 MG TAB PO SCH ×2 (08:22→20:59)
[2021-09-20] MEDS: Docusate 100 MG CAP PO SCH ×2 (08:23→20:59)
[2021-09-20] MEDS: Sodium Chloride 0.9% 1,000 ML IV SCH (10:21)
[2021-09-21] MEDS: Piperacillin/Tazobactam 3.375 GM in Sodium Chloride 0.9% 100 ML IVPB SCH ×3 (02:38→18:38)
[2021-09-21] MEDS: Sodium Chloride 0.9% 1,000 ML IV SCH ×2 (02:42→12:18)
[2021-09-21 05:39] LABS: #Eosinphils 0.2 thou/uL (0.0-0.7); #Lymphocytes 1.6 thou/uL (1.20-3.40); #Monocytes 1.4 thou/uL (0.11-0.59); #Neutrophils 7.2 thou/uL (1.40-6.50); %Basophils 0.3 % (0.0-1.0); %Eosinophils 1.6 % (0.0-10.0); %Lymphocytes 15.4 % (21.0-51.0); %Monocytes 13.6 % (0.0-10.0); %Neutrophils 69.1 % (42.0-75.0); Hemoglobin 14.8 g/dL (14.0-18.0); Mean Corpuscular HGB CONC 34.5 g/dL (32.0-36.0); Mean Corpuscular Hemoglobin 30.9 pg (27.0-31.0); Mean Corpuscular Volume 89.5 fL (78.0-98.0); Mean Platelet Volume 7.4 fL (7.4-10.4); Platelet Count 183 thou/uL (130-400); RBC Distribution Width 12.7 % (11.5-14.5); Red Blood Cell (RBC) Count 4.78 mill/uL (4.70-6.10); White Blood Cell (WBC) Count 10.4 thou/uL (4.8-10.8)
[2021-09-21 06:10] LABS: Anion Gap 10 mmol/L (10-20); BUN (Urea Nitrogen) 15 mg/dL (8.4-25.7); Calc. Creatinine Clearance 166 mL/min (70-130); Calcium 8.3 mg/dL (7.8-10.44); Carbon Dioxide 25 mmol/L (23-31); Chloride 102 mmol/L (98-107); Glucose 175 mg/dL (80-115); Potassium 3.6 mmol/L (3.5-5.1); Sodium 133 mmol/L (136-145)
[2021-09-21] MEDS: HumaLOG 300 UNITS/3 ML VIAL SC PRN ×3 (06:52→16:41)
[2021-09-21] MEDS: Fluconazole 100 MG TAB PO SCH (08:49)
[2021-09-21] MEDS: metFORMIN 500 MG TAB PO SCH ×2 (08:49→16:40)
[2021-09-21] MEDS: Famotidine 20 MG TAB PO SCH (08:49)
[2021-09-21] MEDS: Docusate 100 MG CAP PO SCH (08:49)
[2021-09-21] MEDS: Lisinopril 5 MG TAB PO SCH (08:49)
[2021-09-21 16:32] VITALS: BP 120/80; TEMP 98.4
== END 2021-09-21 18:45 | disposition home or self-care (01) | DRG 713 ==
LOC: SDC 08:03 → SURG B 13:59 → OBSVTOIN 09-19 11:45
PROVIDERS: ADMIT Urology; ATTEND Hospitalist
PROC: 0VB08ZZ Excision of Prostate, Via Natural or Artificial Opening Endoscopic (ICD-10-PCS; principal; 2021-09-18)
DX: N40.1 Benign prostatic hyperplasia with lower urinary tract symptoms (principal); E87.1 Hypo-osmolality and hyponatremia; E11.9 Type 2 diabetes mellitus without complications; E66.01 Morbid (severe) obesity due to excess calories; I10 Essential (primary) hypertension; Z88.5 Allergy status to narcotic agent; Z79.899 Other long term (current) drug therapy; Z83.511 Family history of glaucoma; Z82.49 Family history of ischemic heart disease and other diseases of the circulatory system; Z80.42 Family history of malignant neoplasm of prostate; Z80.41 Family history of malignant neoplasm of ovary; Z68.39 Body mass index [BMI] 39.0-39.9, adult
CPT/HCPCS: 36415; 36416; 80048; 81001; 83036; 84443; 85025; 85027; 85610; 85730; 87040; 87086; 88305; 93005; 93010; 96374; 96376; G0378; J1450; J1815; J1956; J2405; J2543; J2704; J3010; J3490; J7050; U0003; U0005

== ENCOUNTER 2021-10-15 09:58 | Outpatient (CLI) | payer MEDICARE | END 2021-10-15 09:59 | disposition home or self-care (01) | LOC: BICULT 09:58 | PROVIDERS: ATTEND Family Medicine | DX: K11.8 Other diseases of salivary glands (principal) | CPT/HCPCS: 76536 ==